=== PATIENT | male | born 1960 | race African-American/Black ===

== ENCOUNTER 2019-12-24 12:58 | Inpatient (IN) | payer MEDICARE, MEDICAID ==
[~2019-12-24] VITALS: Ht 167.6 cm; Wt 47.4 kg
--- NOTE | 2019-12-24 07:30 | NUR ---
HAND-OFF: Report given to Briana HUITRON. Addendum: 12/24/19 at 2021 by Wilson Leon RN RN Incorrect time stamp
[2019-12-24] MEDS ORDERED: TRAMADOL HCL50 MG ORAL (13:12)
[2019-12-24] MEDS ORDERED: FLOMAX0.4 MG ORAL (13:12)
[2019-12-24] MEDS ORDERED: ACETAMINOPHEN325 M1 ORAL (13:12)
[2019-12-24] MEDS ORDERED: GENVOYA TABLET1 EACH PO (13:12)
[2019-12-24] MEDS ORDERED: ARTIFICIAL TEAR15 ML BOTH EYES (13:12)
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
[2019-12-24] MEDS ORDERED: Acetaminophen 500mg (ES) tab ORAL ONE (13:45)
--- NOTE | 2019-12-24 13:45 | Emergency Room Report ---
History of Present Illness General Chief Complaint: Fever Source: Patient, EMS Present Illness HPI 59-year-old male presents ED for evaluation of fever x1 day. Temp 102 in triage. From [facility] facility. Notes cough. Patient no signs of distress on arrival. Denies any chest pain or shortness of breath. Denies any nausea or vomiting. Denies any diarrhea. No other aggravating relieving factors. Denies any other associated symptoms Allergies: Coded Allergies: No Known Allergies (Unverified , 12/24/19) COVID-19 Screening Contact w/high risk pt: Yes Recent Travel to affected area: No Experienced COVID-19 symptoms?: Yes COVID-19 symptoms experienced: Fever (T>100.4F or >38C) Patient History Past Medical History: HTN, GERD, psych hx Past Surgical History: none Pertinent Family History: none Social History: Denies: smoking, alcohol use, drug use Immunizations: UTD Reviewed Nursing Documentation: PMH: Agreed; PSxH: Agreed Nursing Documentation-PMH Past Medical History: No History, Except For Hx Hypertension: Yes Hx Gastrointestinal Problems: Yes - GERD History Of Psychiatric Problem: Yes - ANXIETY, DEPRESSION Review of Systems All Other Systems: negative except mentioned in HPI Physical Exam Vital Signs Date Time Temp Pulse Resp B/P (MAP) Pulse Ox O2 Delivery O2 Flow Rate FiO2 12/24/19 13:00 102.0 97 18 127/60 (82) 96 Room Air Sp02 EP Interpretation: reviewed, normal General Appearance: no apparent distress, alert, GCS 15, non-toxic Head: normocephalic, atraumatic Eyes: bilateral eye normal inspection, bilateral eye PERRL ENT: hearing grossly normal, normal pharynx, no angioedema, normal voice Neck: full range of motion, supple/symm/no masses Respiratory: chest non-tender, lungs clear, normal breath sounds, speaking full sentences Cardiovascular #1: regular rate, rhythm, no edema Cardiovascular #2: 2+ carotid (R), 2+ carotid (L), 2+ radial (R), 2+ radial (L) , 2+ dorsalis pedis (R), 2+ dorsalis pedis (L) Gastrointestinal: normal bowel sounds, non tender, soft, non-distended, no guarding, no rebound Rectal: deferred Genitourinary: normal inspection, no CVA tenderness Musculoskeletal: back normal, normal range of motion, gait/station normal, non- tender Neurologic: alert, motor strength/tone normal, oriented x3, sensory intact, responsive, speech normal Psychiatric: judgement/insight normal, memory normal, mood/affect normal, no suicidal/homicidal ideation Reflexes: 3+ bicep (R), 3+ bicep (L), 3+ tricep (R), 3+ tricep (L), 3+ knee (R) , 3+ knee (L) Skin: other - see nursing skin notes Lymphatic: no adenopathy Medical Decision Making Diagnostic Impression: Primary Impression: Pneumonia Qualified Codes: J18.9 - Pneumonia, unspecified organism Additional Impression: Fever Qualified Codes: R50.9 - Fever, unspecified ER Course Hospital Course 59 yo M presents with cough, fever from SNF. Differential diagnoses include: Pneumonia, CHF exacerbation, pneumothorax, fluid overload Clinical course Patient placed on stretcher. In isolation. I wore full PPE. On monitor tech with stable vitals. After initial history and physical, I ordered tylenol. I ordered labs, IV fluids, EKG, chest x-ray, blood cultures, UA. Patient placed on nasal cannula with O2 saturation improving Labs - no leukocytosis, hb/hct stable, electrolytes ok, UA + bacteria CXR - haziness in bilteral lung orellana concern for COVID - swab sent. antibitoics given. IVFs given. Case discussed with Dr. Quintana and he agreed to the patient to his service for further care and support I feel this is a highly complex case requiring extensive working including EKG/ Rhythm strip, Xray/CT/US, Blood/urine lab work, repeat exams while in ED, and administration of strong opiates/narcotics for pain control, admission to hospital or close patient follow up. Diagnosis - pneumonia, fever Patient admitted to floor in serious condition Labs Test 12/24/19 13:48 12/24/19 14:15 12/27/19 06:20 Nucleated Red Blood Cells 1 /100 WBC Reactive Lymphocytes 1+ Lactic Acid Level 0.80 mmol/L (0.4-2.0) Urine Color Pale yellow Urine Appearance Very cloudy Urine pH 6.5 (4.5-8.0) Urine Specific [place] 1.010 (1.005-1.035) Urine Protein 3+ (NEGATIVE) Urine Glucose (UA) Negative (NEGATIVE) Urine Ketones Negative (NEGATIVE) Urine Blood 5+ (NEGATIVE) Urine Nitrite Positive (NEGATIVE) Urine Bilirubin Negative (NEGATIVE) Urine Urobilinogen Normal MG/DL (0.0-1.0) Urine Leukocyte Esterase 3+ (NEGATIVE) Urine RBC Tntc /HPF (0 - 0) Urine WBC Tntc /HPF (0 - 0) Urine Squamous Epithelial Cells None /LPF (NONE/OCC) Urine Bacteria Many /HPF (NONE) White Blood Count 5.6 K/UL (4.8-10.8) Red Blood Count 4.40 M/UL (4.70-6.10) Hemoglobin 12.2 G/DL (14.2-18.0) Hematocrit 36.7 % (42.0-52.0) Mean Corpuscular Volume 83 FL (80-99) Mean Corpuscular Hemoglobin 27.8 PG (27.0-31.0) Mean Corpuscular Hemoglobin Concent 33.4 G/DL (32.0-36.0) Red Cell Distribution Width 11.6 % (11.6-14.8) Platelet Count 306 K/UL (150-450) Mean Platelet Volume 6.0 FL (6.5-10.1) Neutrophils (%) (Auto) % (45.0-75.0) Lymphocytes (%) (Auto) % (20.0-45.0) Monocytes (%) (Auto) % (1.0-10.0) Eosinophils (%) (Auto) % (0.0-3.0) Basophils (%) (Auto) % (0.0-2.0) Differential Total Cells Counted 100 Neutrophils % (Manual) 38 % (45-75) Lymphocytes % (Manual) 51 % (20-45) Monocytes % (Manual) 8 % (1-10) Eosinophils % (Manual) 2 % (0-3) Basophils % (Manual) 1 % (0-2) Band Neutrophils 0 % (0-8) Platelet Estimate Adequate Platelet Morphology Normal Red Blood Cell Morphology Normal Sodium Level 141 MMOL/L (136-145) Potassium Level 4.3 MMOL/L (3.5-5.1) Chloride Level 107 MMOL/L (98-107) Carbon Dioxide Level 26 MMOL/L (21-32) Anion Gap 9 mmol/L (5-15) Blood Urea Nitrogen 6 mg/dL (7-18) Creatinine 0.8 MG/DL (0.55-1.30) Estimat Glomerular Filtration Rate > 60 mL/min (>60) Glucose Level 95 MG/DL (74-106) Calcium Level 8.4 MG/DL (8.5-10.1) Total Bilirubin 0.3 MG/DL (0.2-1.0) Aspartate Amino Transf (AST/SGOT) 60 U/L (15-37) Alanine Aminotransferase (ALT/SGPT) 100 U/L (12-78) Alkaline Phosphatase 74 U/L (46-116) Total Protein 7.9 G/DL (6.4-8.2) Albumin 2.7 G/DL (3.4-5.0) Globulin 5.2 g/dL Albumin/Globulin Ratio 0.5 (1.0-2.7) Chest X-Ray Diagnostic Results Chest X-Ray Diagnostic Results : Chest X-Ray Ordered: Yes # of Views/Limited/Complete: 1 View Indication: Shortness of Breath EP Interpretation: Yes Interpretation: no pneumothorax, other - atelectasis bilaterally Impression: Other - pneumonia Electronically Signed by: Electronically signed by Oscar Cardozo MD Last Vital Signs Date Time Temp Pulse Resp B/P (MAP) Pulse Ox O2 Delivery O2 Flow Rate FiO2 12/24/19 13:00 102.0 97 18 127/60 (82) 96 Room Air Status: improved Disposition: ADMITTED INPATIENT Condition: Serious Referrals: Blayne Quintana MD (PCP) Oscar Cardozo MD December 24, 2019 13:45
--- NOTE | 2019-12-24 14:00 | NUR ---
ED Nurse Note: Blood labs and COVID sent.
[2019-12-24 14:11] VITALS: BP 126/63
[2019-12-24 14:20] VITALS: BP 124/61
[2019-12-24 14:39] LABS: HEMATOCRIT 38.7 % (42.0-52.0); HEMOGLOBIN 12.9 G/DL (14.2-18.0); MEAN CORPUSCULAR VOLUME 82 FL (80-99); PLATELET COUNT 266 K/UL (150-450); RED BLOOD COUNT 4.69 M/UL (4.70-6.10); RED CELL DISTRIBUTION WIDTH 11.5 % (11.6-14.8); WHITE BLOOD COUNT 5.9 K/UL (4.8-10.8)
[2019-12-24 14:42] LABS: ANION GAP 9 mmol/L (5-15); BLOOD UREA NITROGEN 13 mg/dL (7-18); CALCIUM 8.5 MG/DL (8.5-10.1); CARBON DIOXIDE 26 MMOL/L (21-32); CHLORIDE 99 MMOL/L (98-107); CREATININE 1.1 MG/DL (0.55-1.30); POTASSIUM 4.7 MMOL/L (3.5-5.1); SODIUM 134 MMOL/L (136-145)
[2019-12-24 14:47] LABS: ALANINE AMINOTRANSFERASE 148 U/L (12-78); ALBUMIN 3.1 G/DL (3.4-5.0); ALBUMIN/GLOBULIN RATIO 0.5 (1.0-2.7); ALKALINE PHOSPHATASE 73 U/L (46-116); ASPARTATE AMINO TRANSFERASE 100 U/L (15-37); BILIRUBIN,TOTAL 0.3 MG/DL (0.2-1.0)
[2019-12-24] MEDS ORDERED: Cefepime HCl 2 GM in D5W 55 ML IVPB ONE (15:00)
[2019-12-24] MEDS ORDERED: Azithromycin 500 MG in D5W 275 ML IVPB ONE (15:00)
[2019-12-24 15:15] LABS: APPEARANCE,URINE VERY CLOUDY; BILIRUBIN, URINE NEGATIVE (NEGATIVE); COLOR,URINE PALE YELLOW; GLUCOSE, URINE (UA) NEGATIVE (NEGATIVE); KETONES,URINE NEGATIVE (NEGATIVE); LEUKOCYTE ESTERASE ,URINE 3+ (NEGATIVE); NITRITE,URINE POSITIVE (NEGATIVE); PH,URINE 6.5 (4.5-8.0); PROTEIN,URINE 3+ (NEGATIVE); UROBILINOGEN,URINE NORMAL MG/DL (0.0-1.0)
--- NOTE | 2019-12-24 15:44 | Diagnostic Imaging Report ---
Indication: Cough Technique: One view of the chest Comparison: none Findings: Lungs and pleural spaces are clear. The heart size is normal. Impression: Negative
--- NOTE | 2019-12-24 16:35 | NUR ---
ED Nurse Note: Report given to Wilson HUITRON.
--- NOTE | 2019-12-24 16:40 | NUR ---
ED Nurse Note: Pt being transferred to MS floor and received by RN. All belongings with pt.
--- NOTE | 2019-12-24 16:50 | NUR ---
NURSE NOTES: Patient arrived in 4E room 406 in stable condition. Vital signs are stable, no complaints of pain. No acute signs of distress noted. IV is patent and asymptomatic, monteiro catheter is patent and draining. Patient oriented to room, bed is low and locked, side rails up x2, call light is within reach.
--- NOTE | 2019-12-24 19:30 | NUR ---
HAND-OFF: Report given to Briana HUITRON.
--- NOTE | 2019-12-24 19:32 | NUR ---
NURSE NOTES: Receive Patient in a stable condition. Vital signs are stable, no complaints of pain. No sob, and no fever. IV is patent, asymptomatic and NS 100cc is running, monteiro catheter is patent and draining.Bed is in the lowest position, alarm on and locked. call light is within reach. We will keep monitoring him
[2019-12-24 20:00] VITALS: BP 100/65
[2019-12-24] MEDS ORDERED: traMADol 50mg tab ORAL PRN (22:30)
[2019-12-24] MEDS ORDERED: Albuterol/Ipratropium 3ml neb HHN SCH (23:00)
[2019-12-25] VITALS: BP 105/69
--- NOTE | 2019-12-25 01:14 | History and Physical Report ---
DATE OF ADMISSION: 12/24/2019 HISTORY OF PRESENT ILLNESS: This is a 59-year-old male who came to the emergency room for having recurrent fever, chills, abdominal pain, nausea, vomiting for last few days. The patient has refused multiple times to come to the hospital. Finally, he agreed. The patient currently looks very diaphoretic, generalized weakness, tired, also having recurrent nausea, vomiting, and abdominal pain. The patient has been critically sick and possible COVID. PAST MEDICAL HISTORY: Significant for dementia, depression, degenerative arthritis, and severe malnutrition. ALLERGIES: NKA. MEDICATIONS: See the list. SOCIAL HISTORY: The patient lives at long term, mostly bedridden. PHYSICAL EXAMINATION: GENERAL: This is an elderly male who currently looks dehydrated and cachectic and in the bed. VITAL SIGNS: Blood pressure 100/40, pulse 74 to 100, respirations 18, T-max 102. SKIN: Diaphoretic and dry. HEENT: Eyes are open. NECK: Supple. CHEST: Bilateral decreased breath sounds. CARDIOVASCULAR: Regular rhythm. Tachycardia. ABDOMEN: Soft, positive bowel sounds. Mild tenderness. EXTREMITIES: CCE. NEUROLOGICAL: Generalized weakness. ASSESSMENT: 1. Fever, rule out sepsis. 2. Rule out COVID. 3. Dehydration. 4. Recurrent nausea and vomiting, rule out gastroenteritis. 5. Severe malnutrition. 6. Dementia. 7. Dehydration. PLAN: The patient was admitted on medical floor, had IV fluid. Continue IV antibiotic, Zithromax, Levaquin, and Rocephin. Consider ID consult. Start soft diet. Added Zofran. If the patient , consider also GI consult. Davey Quintana M.D. DR: Primitivo JOB#: [id number] CC:
[2019-12-25 04:54] VITALS: BP 103/6
--- NOTE | 2019-12-25 07:30 | NUR ---
HAND-OFF: Report given to TOMY Lewis.
[2019-12-25 08:00] VITALS: BP 116/79
--- NOTE | 2019-12-25 08:00 | NUR ---
NURSE NOTES: patient awake and alert,respirations unlabored.IV fluids infusing as ordered.Mao catheter draining yellow urine.patient had bowel movement,skin care given.Patient breakfast at bedside,patient hand appers contracted,will assist patient with meals.Bed alarm on.
--- NOTE | 2019-12-25 09:33 | NUR ---
RD ASSESSMENT & RECOMMENDATIONS SEE CARE ACTIVITY FOR COMPLETE ASSESSMENT DAILY ESTIMATED NEEDS: Needs based on HIV 50kg 30-35 kcals/kg 4182-4885 total kcals 1-2 g protein/kg 50-100 g total protein 25-30 mL/kg 3863-8167 total fluid mLs NUTRITION DIAGNOSIS: Increased kcal and pro needs r/t underweight status as evidenced by BMI underweight per guidelines, 77% of [place] Body Weight, h/o HIV. CURRENT DIET: ms Chopped PO DIET RECOMMENDATIONS: Regular diet, texture as tolerated / per [employer] ADDITIONAL RECOMMENDATIONS: 1) Maintain calibrated bed scale wt d/t low BMI per EMR 2) [employer] eval for appropriate texture 3) Add ensure enlive BID + snacks as tolerated
--- NOTE | 2019-12-25 10:37 | NUR ---
*-* INSURANCE *-* ALL AVAILABLE CLINICALS HAVE BEEN FAXED TO: [facility] ILM: SARINA RIVERA P- [phone] F- [phone]...REVIEW/CLINICAL
[2019-12-25 12:00] VITALS: BP 98/60
--- NOTE | 2019-12-25 13:42 | NUR ---
CASE MANAGEMENT:INITIAL REVIEW 59 YR OLD MALE BIBA FROM [facility] CC; FEVER SI;FEVER. SUSPECTED COVID-19. 102.0 97 20 124/61 63% ON RA NA 134 AST 100 ALT 148 ALB 3.1 UA+ PROTEIN, BLOOD, NITRITE, LEUKOCYTE, RBC, WBC, BACTERIA URINE CX+ ~ GRAM NEGATIVE BACILLUS CXR~NEGATIVE IS;IVF NS BOLUS APAP PO ONCE ADMITTED TO MED SURG @ 1638 ON 12/24/19 MED SURG STATUS DCP;FROM [facility] INTERQUAL MET
[2019-12-25] MEDS ORDERED: Azithromycin 500 MG in D5W 275 ML IV SCH (15:00)
[2019-12-25] MEDS: cefTRIAXone 1 GM in D5W 55 ML IVPB SCH (15:09)
[2019-12-25] MEDS: Tamsulosin 0.4mg cap ORAL SCH (15:52)
[2019-12-25 16:00] VITALS: BP 129/60
--- NOTE | 2019-12-25 17:08 | NUR ---
CHARGE NURSE NOTE: and notified that HIV medications are not available at [facility]. No new orders received.
--- NOTE | 2019-12-25 17:59 | Progress Note ---
DATE: 12/25/2019 SUBJECTIVE: This is a 59-year-old male having recurrent abdominal pain, nausea, vomiting, and fever. Patient initially refused for last 2 or 3 days. Suddenly, he became diaphoretic and dizzy and recurrent fever, came to the hospital. Patient is currently alert, oriented x2, generalized weakness, . Patient currently still critically sick. OBJECTIVE: VITAL SIGNS: Patient has low-grade fever 99.6, pulse 95, respirations 24, blood pressure 103/38. HEENT: Eyes are open. NECK: Supple. CHEST: Bilateral decreased breath sounds. CARDIOVASCULAR: Regular rhythm. Tachycardia. ABDOMEN: Soft. Positive bowel sounds. Nontender. EXTREMITIES: CCE. NEUROLOGICAL: Generalized weakness. GENITOURINARY: Deferred. LABORATORY DATA: White counts 5.9, hemoglobin 13, hematocrit 39, platelets are 256. Chemistry panel, sodium 134, potassium 4.7, BUN 13, creatinine 1.1, glucose is 89. Lactic acid 0.80. AST, ALT elevated. His urine showing 5+ blood, urine nitrites are positive, 3+ leukocyte esterase. His chest x-ray is negative. ASSESSMENT: 1. Sepsis. 2. UTI. Rule out COVID. 3. Failure to thrive. 4. Dementia. 5. Encephalopathy. PLAN: We will currently continue Zithromax, ceftriaxone. Continue Flomax and bronchodilator treatment. for severe pain. Consider ID consult. Davey Quintana M.D. DR: ARMANI JOB#: [id number] CC:
--- NOTE | 2019-12-25 18:30 | Consultation ---
DATE OF CONSULTATION: 12/25/2019 INFECTIOUS DISEASES CONSULTATION CONSULTING PHYSICIAN: Aysha Beal MD. REFERRING PHYSICIAN: Blayne Quintana MD. REASON FOR CONSULTATION: Rule out COVID-19 pneumonia. HISTORY OF PRESENTING ILLNESS: This is a 59-year-old gentleman with history of dementia, depression, arthritis who comes in with fever, chills, nausea, vomiting, and abdominal pain. There is a concern for COVID-19 pneumonia and an Infectious Diseases consultation has been obtained for antibiotics. PAST MEDICAL HISTORY: 1. History of dementia. 2. Depression. 3. Arthritis. SOCIAL HISTORY: Unknown. FAMILY HISTORY: Unknown. REVIEW OF SYSTEMS: Unable to obtain currently. MEDICATIONS: As an inpatient, he is on ceftriaxone, azithromycin, artificial tears, Flomax, albuterol, ipratropium, Tylenol, tramadol, Zofran. ALLERGIES: No known drug allergies. PHYSICAL EXAMINATION: VITAL SIGNS: Temperature of 99.6, T-max of 102, pulse of 95, respiratory rate 24, blood pressure 105/69, O2 saturation 98%. Examination deferred due to possibility of COVID-19. LABORATORY AND DIAGNOSTIC DATA: White count 5.9, hemoglobin 12.9, hematocrit 38.7, MCV 82, platelet count 266 with neutrophils of 35%. Sodium 134, potassium 4.7, chloride 99, bicarb 26, BUN 13, creatinine 1.1, glucose 89, calcium 8.5. Total bilirubin 0.3, AST 100, ALT 148, alkaline phosphatase 73. Total protein 9, albumin 3.1. UA showing too numerous to count white cells. Urine culture is showing gram-negative rods. Chest x-ray was unremarkable. Blood cultures are pending. COVID-19 testing is pending. ASSESSMENT: This is a 59-year-old gentleman with history of arthritis, dementia, depression who comes in with fevers and is found to have. 1. Gram-negative urinary tract infection. 2. We would like to rule out COVID-19 pneumonia as a possibility. 3. Dementia. 4. Depression. PLAN: 1. Continue ceftriaxone and azithromycin. 2. Continue isolation. 3. We will follow up cultures and adjust antibiotics accordingly. 4. We will follow up on COVID-19 results. I would like to thank Dr. Quintana for this consultation. Aysha Beal M.D. DR: ELSY JOB#: [id number] CC: Davey Quintana M.D.; Fax#: [phone]
--- NOTE | 2019-12-25 19:00 | NUR ---
NURSE NOTES: Patient resting,IV fluids infusing as ordered.Bed alarm on,call light within reach.
--- NOTE | 2019-12-25 19:27 | NUR ---
HAND-OFF: Report given to Vicente HUITRON,aware of fall risk..
--- NOTE | 2019-12-25 19:30 | NUR ---
NURSE NOTES: Received patient in no apparent distress. A&OX3. IV site patent and intact. Bed in lowest position. Call light within reach. Will continue to monitor.
[2019-12-25 20:00] VITALS: BP 98/54
--- NOTE | 2019-12-25 21:30 | Consultation ---
DATE OF CONSULTATION: 12/25/2019 HISTORY OF PRESENT ILLNESS: This is a 59-year-old male with a history of being a long term resident. He was brought to the hospital with cough and fever. He was also found to be febrile in the emergency room. The patient was seen and evaluated and admitted to the hospital. PAST MEDICAL HISTORY: Notable for a long term resident, hypertension, GERD, and psych disorder. HOME MEDICATIONS: Reviewed, reconciled in chart. REVIEW OF SYSTEMS: Unreliable. PHYSICAL EXAMINATION: GENERAL: A 59-year-old male. HEENT: Unremarkable. LUNGS: Clear breath sounds bilaterally with normal heart sounds. ABDOMEN: Soft. EXTREMITIES: There is no edema. VITAL SIGNS: Blood pressure is 103/60, heart rate is 95, respirations are 22, O2 saturation 97% on room air, T-max 99.6. LABORATORY DATA: Lab testing shows normal CBC and BMP with elevation of AST and ALT noted. Urine culture shows gram-negative bacilli. IMAGING STUDIES: Imaging studies were obtained with x-ray of chest showing clear lung orellana bilaterally. IMPRESSION: 1. Probable UTI. 2. [facility] resident. 3. Hypertension. 4. GERD. DISCUSSION: Admit to the hospital. Currently, his status is stable. We will continue to monitor for COVID-19 given long term residency status. We will follow carefully and note that he has been started on fluids, breathing treatments, azithromycin and Rocephin as well as p.r.n. medications. We will follow carefully. Gabino Mcallister M.D. DR: Teddy JOB#: [id number] CC:
--- NOTE | 2019-12-25 23:19 | NUR ---
NURSE NOTES: Received COVID positive result from Lab.
[2019-12-26] VITALS: BP 90/60
[2019-12-26 04:00] VITALS: BP 110/74
--- NOTE | 2019-12-26 07:16 | NUR ---
NURSE NOTES: Call and left message to Dr. Beal regarding COVID positive result.
--- NOTE | 2019-12-26 07:18 | NUR ---
HAND-OFF: Report given to Soledad HUITRON.
--- NOTE | 2019-12-26 07:38 | NUR ---
NURSE NOTES: Patient awake alert and oriented,respirations unlabored.Mao catheter in place and draining yellow urine.IV fluids infusing as ordered.Breakfast at bedside will assist patient.Call light within reach.
[2019-12-26 08:00] VITALS: BP 96/62
[2019-12-26] MEDS: Tamsulosin 0.4mg cap ORAL SCH (09:00)
[2019-12-26] MEDS ORDERED: Hydroxychloroquine Fact Sheet MISC ONE (10:00)
--- NOTE | 2019-12-26 11:16 | NUR ---
NURSE NOTES: Patient was given the information fact sheet on Hydroxychloroquine and aware of the Positive COVID -19 result.. Patient state he understand what the medication is use for but he is not sure if he wants to take the medication. Patient state he is more concern about his HIV medication Genvoya , the patient medication was sent to pharmacy waiting approval.
--- NOTE | 2019-12-26 11:16 | Pulmonology Progress Note ---
Subjective Interval Events: None new Constitutional: Reports: no symptoms HEENT: Repors: no symptoms Respiratory: Reports: dry cough, shortness of breath Cardiovascular: Reports: no symptoms Gastrointestinal/Abdominal: Reports: no symptoms Genitourinary: Reports: no symptoms Allergies: Coded Allergies: No Known Allergies (Unverified , 12/24/19) Objective Last 24 Hour Vital Signs Date Time Temp Pulse Resp B/P (MAP) Pulse Ox O2 Delivery O2 Flow Rate FiO2 12/26/19 09:41 Room Air 12/26/19 08:00 98.1 75 18 96/62 (73) 96 12/26/19 04:00 98.6 84 20 110/74 (86) 96 12/26/19 00:00 99.0 85 19 90/60 (70) 96 12/25/19 21:00 Room Air 12/25/19 20:00 99.6 88 17 98/54 (69) 96 12/25/19 16:00 98.8 78 18 129/60 (83) 96 12/25/19 12:00 99.7 93 20 98/60 (73) 98 12/25/19 11:29 Room Air Intake and Output 12/25/19 12/26/19 19:00 07:00 Intake Total 200 ml 1340 ml Output Total 1700 ml Balance 200 ml -360 ml Intake Oral 240 ml IV Total 200 ml 1100 ml Output Urine Total 1700 ml Microbiology Date/Time Source Procedure Growth Status 12/24/19 13:48 Blood Blood Culture - Preliminary NO GROWTH AFTER 24 HOURS Resulted 12/24/19 13:33 Blood Blood Culture - Preliminary NO GROWTH AFTER 24 HOURS Resulted 12/24/19 14:13 Nasal Nares MRSA Culture - Final NO METHICILLIN RESISTANT STAPH AUREUS... Complete 12/24/19 13:48 Nasopharynx Coronavirus COVID-19 PCR (JAMES) - Final Complete 12/24/19 14:15 Urine,Clean Catch Urine Culture - Final Providencia Stuartii Complete 12/24/19 14:13 Rectum - Final NO CARBAPENEM-RESISTANT ENTEROBACTERI... Complete 12/24/19 14:13 Rectum VRE Culture - Final NO VANCOMYCIN RESISTANT ENTEROCOCCUS ... Complete Current Medications Medications (Trade) Dose Ordered Sig/Val Route PRN Reason Start Time Stop Time Status Last Admin Dose Admin Acetaminophen (Tylenol) 650 mg Q6H PRN ORAL Temp >100.5 12/24/19 22:30 01/23/20 22:29 Albuterol/ Ipratropium (Combivent Respimat) 1 puff Q4HR INH 12/25/19 09:00 01/24/20 08:59 Artificial Tears (Akwa-Tears) 1 drop THREE TIMES A DAY BOTH EYES 12/25/19 09:00 01/24/20 08:59 12/25/19 15:12 Ceftriaxone Sodium 1 gm/ Dextrose 55 ml @ 110 mls/hr Q24H IVPB 12/25/19 14:00 01/01/20 13:59 12/25/19 15:09 Hydroxychloroquine Sulfate (Plaquenil) 200 mg Q12HR ORAL 12/27/19 09:00 12/30/19 21:01 Hydroxychloroquine Sulfate (Plaquenil) 400 mg Q12HR ORAL 12/26/19 10:00 12/26/19 21:01 Ondansetron HCl (Zofran) 4 mg Q6H PRN IVP Nausea & Vomiting 12/24/19 19:00 01/23/20 18:59 Patient Own Medication (Patient's Own Med) 1 ea DAILY ORAL 12/26/19 13:00 01/25/20 12:59 Sodium Chloride 1,000 ml @ 100 mls/hr Q10H IV 12/24/19 19:00 01/23/20 18:59 12/26/19 11:09 Tamsulosin HCl (Flomax) 0.4 mg DAILY ORAL 12/25/19 09:00 01/24/20 08:59 12/25/19 15:52 Tramadol HCl (Ultram) 50 mg Q6H PRN ORAL For Pain 12/24/19 22:30 12/31/19 22:29 Assessment/Plan Assessment/Plan IMPRESSION: 1. Providencia UTI. 2. [facility] resident. 3. Hypertension. 4. GERD. 5. COVID 19 pneumonia DISCUSSION: Currently, his status is stable. He is on RA I will follow carefully COntinue fluids,breathing treatments, abx as well as p.r.n. medications. Ranjan Adam Omar Syed MD December 26, 2019 11:16
--- NOTE | 2019-12-26 11:41 | Infectious Diseases Prog Note ---
Assessment/Plan Assessment/Plan A; 1. Providencia urinary tract infection. 2. COVID-19 pneumonia 3. Dementia. 4. Depression. 5. Lymphocytosis 6. elevated transaminase PLAN: 1. Continue ceftriaxone and azithromycin. 2. Continue isolation. Subjective ROS Limited/Unobtainable: Yes Constitutional: Denies: fever Allergies: Coded Allergies: No Known Allergies (Unverified , 12/24/19) Objective Vital Signs Last 24 Hour Vital Signs Date Time Temp Pulse Resp B/P (MAP) Pulse Ox O2 Delivery O2 Flow Rate FiO2 12/26/19 09:41 Room Air 12/26/19 08:00 98.1 75 18 96/62 (73) 96 12/26/19 04:00 98.6 84 20 110/74 (86) 96 12/26/19 00:00 99.0 85 19 90/60 (70) 96 12/25/19 21:00 Room Air 12/25/19 20:00 99.6 88 17 98/54 (69) 96 12/25/19 16:00 98.8 78 18 129/60 (83) 96 12/25/19 12:00 99.7 93 20 98/60 (73) 98 Height (Feet): 5 Height (Inches): 6.00 Weight (Pounds): 110 General Appearance: no acute distress HEENT: mucous membranes moist Respiratory/Chest: lungs clear, other - oxygen by nasal cannula Cardiovascular: normal rate Abdomen: soft, non tender Extremities: no edema Neurologic/Psychiatric: other - sleeping Microbiology Date/Time Source Procedure Growth Status 12/24/19 13:48 Blood Blood Culture - Preliminary NO GROWTH AFTER 24 HOURS Resulted 12/24/19 13:33 Blood Blood Culture - Preliminary NO GROWTH AFTER 24 HOURS Resulted 12/24/19 14:13 Nasal Nares MRSA Culture - Final NO METHICILLIN RESISTANT STAPH AUREUS... Complete 12/24/19 13:48 Nasopharynx Coronavirus COVID-19 PCR (JAMES) - Final Complete 12/24/19 14:15 Urine,Clean Catch Urine Culture - Final Providencia Stuartii Complete 12/24/19 14:13 Rectum - Final NO CARBAPENEM-RESISTANT ENTEROBACTERI... Complete 12/24/19 14:13 Rectum VRE Culture - Final NO VANCOMYCIN RESISTANT ENTEROCOCCUS ... Complete Current Medications Medications (Trade) Dose Ordered Sig/Val Route PRN Reason Start Time Stop Time Status Last Admin Dose Admin Acetaminophen (Tylenol) 650 mg Q6H PRN ORAL Temp >100.5 12/24/19 22:30 01/23/20 22:29 Albuterol/ Ipratropium (Combivent Respimat) 1 puff Q4HR INH 12/25/19 09:00 01/24/20 08:59 Artificial Tears (Akwa-Tears) 1 drop THREE TIMES A DAY BOTH EYES 12/25/19 09:00 01/24/20 08:59 12/25/19 15:12 Ceftriaxone Sodium 1 gm/ Dextrose 55 ml @ 110 mls/hr Q24H IVPB 12/25/19 14:00 01/01/20 13:59 12/25/19 15:09 Hydroxychloroquine Sulfate (Plaquenil) 200 mg Q12HR ORAL 12/27/19 09:00 12/30/19 21:01 Hydroxychloroquine Sulfate (Plaquenil) 400 mg Q12HR ORAL 12/26/19 10:00 12/26/19 21:01 Ondansetron HCl (Zofran) 4 mg Q6H PRN IVP Nausea & Vomiting 12/24/19 19:00 01/23/20 18:59 Patient Own Medication (Patient's Own Med) 1 ea DAILY ORAL 12/26/19 13:00 01/25/20 12:59 Sodium Chloride 1,000 ml @ 100 mls/hr Q10H IV 12/24/19 19:00 01/23/20 18:59 12/26/19 11:09 Tamsulosin HCl (Flomax) 0.4 mg DAILY ORAL 12/25/19 09:00 01/24/20 08:59 12/25/19 15:52 Tramadol HCl (Ultram) 50 mg Q6H PRN ORAL For Pain 12/24/19 22:30 12/31/19 22:29 Baron Angulo MD December 26, 2019 11:41
[2019-12-26 12:00] VITALS: BP 108/70
--- NOTE | 2019-12-26 14:12 | NUR ---
*-* INSURANCE *-* UPDATED CLINICALS HAVE BEEN FAXED TO: [facility] DCM: SARINA RIVERA P- [phone] F- [phone]...REVIEW/CLINICAL
[2019-12-26] MEDS: GENVOYA ORAL SCH (14:25)
[2019-12-26] MEDS: cefTRIAXone 1 GM in D5W 55 ML IVPB SCH (14:26)
--- NOTE | 2019-12-26 14:44 | NUR ---
CASE MANAGEMENT:REVIEW SI;COVID-19 PNEUMONIA PROVIDENCIA UTI. 99.6 88 20 90/60 96% ON RA IS;PLAQUENIL PO Q12 HRS ROCEPHIN IV Q24 HRS AZITHROMYCIN IV Q24 HRS FLOMAX PO QD COMBIVENT ING Q4 HRS IVF NS @ 100 ML/HR MED SURG STATUS DCP; FROM [facility] PLAN;CONTINUE ISOLATION CONTINUE ABX
--- NOTE | 2019-12-26 14:44 | NUR ---
NURSE NOTES: DR Marcello Angulo was here today and aware of patient not wanting to take the medication Hydroxchloroquine.
[2019-12-26 16:00] VITALS: BP 123/81
--- NOTE | 2019-12-26 19:20 | NUR ---
HAND-OFF: Report given to Ashlee HUITRON.
--- NOTE | 2019-12-26 19:30 | NUR ---
NURSE NOTES: The patient was accessed and was looking weak. He had poor appetite and was not not willing to eat his dinner tray which was still hanging out on his bed side. He was offer apple juice and crackers and was only able to tolerate 2 crackers and 2 cans of apple juice. The Resp is even and unlabored and he was verbally responsive with low voice. He was able to reposition himself. The IV site is patent and intact on the left lower arm. The bed is on low position and the call light was within easy reach. will continue to monitor
[2019-12-26 20:00] VITALS: BP 97/64
--- NOTE | 2019-12-26 21:12 | NUR ---
NURSE NOTES: The patient refused to take his 2100 plaquinil 400 mg and Combivent puff . The patient was explained the risks and benefits but still refused.
--- NOTE | 2019-12-26 21:45 | Progress Note ---
DATE: 12/26/2019 SUBJECTIVE: The patient is currently in bed and looking okay, but is screaming. PHYSICAL EXAMINATION: VITAL SIGNS: Blood pressure 108/70, pulse 78, no fever. HEENT: NAD. CHEST: Bilateral few crackles. CARDIOVASCULAR: Regular rhythm. ABDOMEN: Soft. EXTREMITIES: CCE. NEUROLOGICAL: No generalized weakness. LABORATORY DATA: The patient has no labs. ASSESSMENT: 1. COVID pneumonia. 2. Fever. 3. Sepsis. His blood culture was so far negative. Urine culture showing Providencia. PLAN: We will continue antibiotics. ID is on consult and continue also isolation and continue Plaquenil. Davey Quintana M.D. DR: Primitivo JOB#: [id number] CC:
[2019-12-27] VITALS: BP 94/59
[2019-12-27 04:00] VITALS: BP 95/60
[2019-12-27 06:42] LABS: HEMATOCRIT 36.7 % (42.0-52.0); HEMOGLOBIN 12.2 G/DL (14.2-18.0); MEAN CORPUSCULAR VOLUME 83 FL (80-99); PLATELET COUNT 306 K/UL (150-450); RED CELL DISTRIBUTION WIDTH 11.6 % (11.6-14.8); WHITE BLOOD COUNT 5.6 K/UL (4.8-10.8)
[2019-12-27 07:03] LABS: ALANINE AMINOTRANSFERASE 100 U/L (12-78); ALBUMIN 2.7 G/DL (3.4-5.0); ALBUMIN/GLOBULIN RATIO 0.5 (1.0-2.7); ALKALINE PHOSPHATASE 74 U/L (46-116); ANION GAP 9 mmol/L (5-15); ASPARTATE AMINO TRANSFERASE 60 U/L (15-37); BILIRUBIN,TOTAL 0.3 MG/DL (0.2-1.0); BLOOD UREA NITROGEN 6 mg/dL (7-18); CALCIUM 8.4 MG/DL (8.5-10.1); CARBON DIOXIDE 26 MMOL/L (21-32); CHLORIDE 107 MMOL/L (98-107); CREATININE 0.8 MG/DL (0.55-1.30); POTASSIUM 4.3 MMOL/L (3.5-5.1); SODIUM 141 MMOL/L (136-145)
--- NOTE | 2019-12-27 07:45 | NUR ---
NURSE NOTES: Report received from Ashlee Rodriguez RN. Seen on rounds, AxOx4, not in distress, no complaints of pain. Tolerating room air. Noted distal occlusion on left forearm PIV, unable to flush, pt reports pain when site is palpated. Line removed. Will reinsert. Mao cath secured and draining well. Bed low and locked, siderails up x3, zone alarms on 1, call light placed within reach and instructed to use to call nurse. Will continue to monitor and implement plan of care.
--- NOTE | 2019-12-27 07:46 | NUR ---
HAND-OFF: Report given to Cydney HUITRON.
[2019-12-27 08:00] VITALS: BP 101/55
[2019-12-27] MEDS: GENVOYA ORAL SCH ×2 (09:00→14:29)
--- NOTE | 2019-12-27 09:00 | NUR ---
NURSE NOTES: Patient refused 9am medications Plaquenil, eye drops and combivent. Educated on risks and benefits x3, patient still refused. Patient is AxOx4.
[2019-12-27] MEDS: Tamsulosin 0.4mg cap ORAL SCH (09:03)
--- NOTE | 2019-12-27 10:49 | Infectious Diseases Prog Note ---
Assessment/Plan Assessment/Plan antibiotics : ceftriaxone, hydroxychloroquine A 1. providencia UTI 2. COVID 19 pneumonia 3. dementia P 1. continue ceftriaxone 3 more days 2. continue hydroxychloroquine 3 more days 3. will follow up cultures 4. continue isolation Subjective ROS Limited/Unobtainable: Yes Allergies: Coded Allergies: No Known Allergies (Unverified , 12/24/19) Objective Vital Signs Last 24 Hour Vital Signs Date Time Temp Pulse Resp B/P (MAP) Pulse Ox O2 Delivery O2 Flow Rate FiO2 12/27/19 08:00 98.7 84 19 101/55 (70) 97 12/27/19 04:00 98.4 95 18 95/60 (72) 95 12/27/19 00:00 98.5 94 20 94/59 (71) 95 12/26/19 21:00 Room Air 12/26/19 20:00 98.6 97 18 97/64 (75) 96 12/26/19 16:00 96.8 71 18 123/81 (95) 95 12/26/19 12:00 96.6 78 17 108/70 (83) 95 Height (Feet): 5 Height (Inches): 6.00 Weight (Pounds): 110 Microbiology Date/Time Source Procedure Growth Status 12/24/19 13:48 Blood Blood Culture - Preliminary NO GROWTH AFTER 48 HOURS Resulted 12/24/19 13:33 Blood Blood Culture - Preliminary NO GROWTH AFTER 48 HOURS Resulted 12/24/19 14:13 Nasal Nares MRSA Culture - Final NO METHICILLIN RESISTANT STAPH AUREUS... Complete 12/24/19 13:48 Nasopharynx Coronavirus COVID-19 PCR (JAMES) - Final Complete 12/24/19 14:15 Urine,Clean Catch Urine Culture - Final Providencia Stuartii Complete 12/24/19 14:13 Rectum - Final NO CARBAPENEM-RESISTANT ENTEROBACTERI... Complete 12/24/19 14:13 Rectum VRE Culture - Final NO VANCOMYCIN RESISTANT ENTEROCOCCUS ... Complete Laboratory Tests Test 12/27/19 06:20 White Blood Count 5.6 K/UL (4.8-10.8) Red Blood Count 4.40 M/UL (4.70-6.10) L Hemoglobin 12.2 G/DL (14.2-18.0) L Hematocrit 36.7 % (42.0-52.0) L Mean Corpuscular Volume 83 FL (80-99) Mean Corpuscular Hemoglobin 27.8 PG (27.0-31.0) Mean Corpuscular Hemoglobin Concent 33.4 G/DL (32.0-36.0) Red Cell Distribution Width 11.6 % (11.6-14.8) Platelet Count 306 K/UL (150-450) Mean Platelet Volume 6.0 FL (6.5-10.1) L Neutrophils (%) (Auto) % (45.0-75.0) Lymphocytes (%) (Auto) % (20.0-45.0) Monocytes (%) (Auto) % (1.0-10.0) Eosinophils (%) (Auto) % (0.0-3.0) Basophils (%) (Auto) % (0.0-2.0) Differential Total Cells Counted 100 Neutrophils % (Manual) 38 % (45-75) L Lymphocytes % (Manual) 51 % (20-45) H Monocytes % (Manual) 8 % (1-10) Eosinophils % (Manual) 2 % (0-3) Basophils % (Manual) 1 % (0-2) Band Neutrophils 0 % (0-8) Platelet Estimate Adequate Platelet Morphology Normal Red Blood Cell Morphology Normal Sodium Level 141 MMOL/L (136-145) Potassium Level 4.3 MMOL/L (3.5-5.1) Chloride Level 107 MMOL/L (98-107) Carbon Dioxide Level 26 MMOL/L (21-32) Anion Gap 9 mmol/L (5-15) Blood Urea Nitrogen 6 mg/dL (7-18) L Creatinine 0.8 MG/DL (0.55-1.30) Estimat Glomerular Filtration Rate > 60 mL/min (>60) Glucose Level 95 MG/DL (74-106) Calcium Level 8.4 MG/DL (8.5-10.1) L Total Bilirubin 0.3 MG/DL (0.2-1.0) Aspartate Amino Transf (AST/SGOT) 60 U/L (15-37) H Alanine Aminotransferase (ALT/SGPT) 100 U/L (12-78) H Alkaline Phosphatase 74 U/L (46-116) Total Protein 7.9 G/DL (6.4-8.2) Albumin 2.7 G/DL (3.4-5.0) L Globulin 5.2 g/dL Albumin/Globulin Ratio 0.5 (1.0-2.7) L Current Medications Medications (Trade) Dose Ordered Sig/Val Route PRN Reason Start Time Stop Time Status Last Admin Dose Admin Acetaminophen (Tylenol) 650 mg Q6H PRN ORAL Temp >100.5 12/24/19 22:30 01/23/20 22:29 Albuterol/ Ipratropium (Combivent Respimat) 1 puff Q4HR INH 12/25/19 09:00 01/24/20 08:59 Artificial Tears (Akwa-Tears) 1 drop THREE TIMES A DAY BOTH EYES 12/25/19 09:00 01/24/20 08:59 12/25/19 15:12 Ceftriaxone Sodium 1 gm/ Dextrose 55 ml @ 110 mls/hr Q24H IVPB 12/25/19 14:00 01/01/20 13:59 12/26/19 14:26 Hydroxychloroquine Sulfate (Plaquenil) 200 mg Q12HR ORAL 12/27/19 09:00 12/30/19 21:01 Ondansetron HCl (Zofran) 4 mg Q6H PRN IVP Nausea & Vomiting 12/24/19 19:00 01/23/20 18:59 Patient Own Medication (Patient's Own Med) 1 ea DAILY@1500 ORAL 12/27/19 15:00 01/26/20 14:59 Sodium Chloride 1,000 ml @ 100 mls/hr Q10H IV 12/24/19 19:00 01/23/20 18:59 12/27/19 06:14 Tamsulosin HCl (Flomax) 0.4 mg DAILY ORAL 12/25/19 09:00 01/24/20 08:59 12/27/19 09:03 Tramadol HCl (Ultram) 50 mg Q6H PRN ORAL For Pain 12/24/19 22:30 12/31/19 22:29 Aysha Beal MD December 27, 2019 10:49
--- NOTE | 2019-12-27 11:16 | Pulmonology Progress Note ---
Subjective ROS Limited/Unobtainable: Yes Interval Events: None new Constitutional: Denies: fever HEENT: Repors: no symptoms Respiratory: Reports: dry cough, shortness of breath Cardiovascular: Reports: no symptoms Gastrointestinal/Abdominal: Reports: no symptoms Genitourinary: Reports: no symptoms Allergies: Coded Allergies: No Known Allergies (Unverified , 12/24/19) Objective Last 24 Hour Vital Signs Date Time Temp Pulse Resp B/P (MAP) Pulse Ox O2 Delivery O2 Flow Rate FiO2 12/27/19 08:00 98.7 84 19 101/55 (70) 97 12/27/19 04:00 98.4 95 18 95/60 (72) 95 12/27/19 00:00 98.5 94 20 94/59 (71) 95 12/26/19 21:00 Room Air 12/26/19 20:00 98.6 97 18 97/64 (75) 96 12/26/19 16:00 96.8 71 18 123/81 (95) 95 12/26/19 12:00 96.6 78 17 108/70 (83) 95 Intake and Output 12/26/19 12/27/19 19:00 07:00 Intake Total 1400 ml 1240 ml Output Total 1400 ml 500 ml Balance 0 ml 740 ml Intake Oral 600 ml 240 ml IV Total 800 ml 1000 ml Output Urine Total 1400 ml 500 ml # Bowel Movements 1 General Appearance: no acute distress HEENT: mucous membranes moist Abdomen: soft, non tender Extremities: no edema Neurologic/Psychiatric: other - sleeping Microbiology Date/Time Source Procedure Growth Status 12/24/19 13:48 Blood Blood Culture - Preliminary NO GROWTH AFTER 48 HOURS Resulted 12/24/19 13:33 Blood Blood Culture - Preliminary NO GROWTH AFTER 48 HOURS Resulted 12/24/19 14:13 Nasal Nares MRSA Culture - Final NO METHICILLIN RESISTANT STAPH AUREUS... Complete 12/24/19 13:48 Nasopharynx Coronavirus COVID-19 PCR (JAMES) - Final Complete 12/24/19 14:15 Urine,Clean Catch Urine Culture - Final Providencia Stuartii Complete 12/24/19 14:13 Rectum - Final NO CARBAPENEM-RESISTANT ENTEROBACTERI... Complete 12/24/19 14:13 Rectum VRE Culture - Final NO VANCOMYCIN RESISTANT ENTEROCOCCUS ... Complete Laboratory Tests 12/27/19 06:20: White Blood Count 5.6, Red Blood Count 4.40L, Hemoglobin 12.2L, Hematocrit 36.7L , Mean Corpuscular Volume 83, Mean Corpuscular Hemoglobin 27.8, Mean Corpuscular Hemoglobin Concent 33.4, Red Cell Distribution Width 11.6, Platelet Count 306, Mean Platelet Volume 6.0L, Neutrophils (%) (Auto) , Lymphocytes (%) ( Auto) , Monocytes (%) (Auto) , Eosinophils (%) (Auto) , Basophils (%) (Auto) , Differential Total Cells Counted 100, Neutrophils % (Manual) 38L, Lymphocytes % (Manual) 51H, Monocytes % (Manual) 8, Eosinophils % (Manual) 2, Basophils % ( Manual) 1, Band Neutrophils 0, Platelet Estimate Adequate, Platelet Morphology Normal, Red Blood Cell Morphology Normal, Sodium Level 141, Potassium Level 4.3 , Chloride Level 107, Carbon Dioxide Level 26, Anion Gap 9, Blood Urea Nitrogen 6L, Creatinine 0.8, Estimat Glomerular Filtration Rate > 60, Glucose Level 95, Calcium Level 8.4L, Total Bilirubin 0.3, Aspartate Amino Transf (AST/SGOT) 60H, Alanine Aminotransferase (ALT/SGPT) 100H, Alkaline Phosphatase 74, Total Protein 7.9, Albumin 2.7L, Globulin 5.2, Albumin/Globulin Ratio 0.5L Current Medications Medications (Trade) Dose Ordered Sig/Val Route PRN Reason Start Time Stop Time Status Last Admin Dose Admin Acetaminophen (Tylenol) 650 mg Q6H PRN ORAL Temp >100.5 12/24/19 22:30 01/23/20 22:29 Albuterol/ Ipratropium (Combivent Respimat) 1 puff Q4HR INH 12/25/19 09:00 01/24/20 08:59 Artificial Tears (Akwa-Tears) 1 drop THREE TIMES A DAY BOTH EYES 12/25/19 09:00 01/24/20 08:59 12/25/19 15:12 Ceftriaxone Sodium 1 gm/ Dextrose 55 ml @ 110 mls/hr Q24H IVPB 12/25/19 14:00 01/01/20 13:59 12/26/19 14:26 Hydroxychloroquine Sulfate (Plaquenil) 200 mg Q12HR ORAL 12/27/19 09:00 12/30/19 21:01 Ondansetron HCl (Zofran) 4 mg Q6H PRN IVP Nausea & Vomiting 12/24/19 19:00 01/23/20 18:59 Patient Own Medication (Patient's Own Med) 1 ea DAILY@1500 ORAL 12/27/19 15:00 01/26/20 14:59 Sodium Chloride 1,000 ml @ 100 mls/hr Q10H IV 12/24/19 19:00 01/23/20 18:59 12/27/19 06:14 Tamsulosin HCl (Flomax) 0.4 mg DAILY ORAL 12/25/19 09:00 01/24/20 08:59 12/27/19 09:03 Tramadol HCl (Ultram) 50 mg Q6H PRN ORAL For Pain 12/24/19 22:30 12/31/19 22:29 Assessment/Plan Assessment/Plan IMPRESSION: 1. Providencia UTI. 2. retirement resident. 3. Hypertension. 4. GERD. 5. COVID 19 pneumonia DISCUSSION: Currently, his status is stable. He is on RA I will follow carefully Continue fluids,breathing treatments, abx as well as p.r.n. medications. Ranjan Adam Omar Syed MD December 27, 2019 11:16
[2019-12-27 12:00] VITALS: BP 110/69
--- NOTE | 2019-12-27 14:23 | NUR ---
CASE MANAGEMENT:REVIEW SI;COVID-19 PNEUMONIA PROVIDENCIA UTI. 98.7 95 20 94/59 95% ON RA AST 60 ALT 100 ALB 2.7 IS;PLAQUENIL PO Q12 HRS UNTIL 12/30/19 ROCEPHIN IV Q24 HRS FLOMAX PO QD COMBIVENT ING Q4 HRS IVF NS @ 100 ML/HR MED SURG STATUS DCP;FROM [facility]
[2019-12-27] MEDS: cefTRIAXone 1 GM in D5W 55 ML IVPB SCH (14:29)
--- NOTE | 2019-12-27 15:19 | NUR ---
NURSE NOTES: Patient refused 9am dose of Plaquenil. Educated on risks and benefits x 3, patient still refused. He is AxOx4. Dr. Marcello Angulo notified on rounds that patient has refused to take this medication. Also left message for ordering MD Dr. Beal. Awaiting response.
--- NOTE | 2019-12-27 15:26 | NUR ---
*-* INSURANCE *-* UPDATED CLINICALS HAVE BEEN FAXED TO: [facility] NHM: SARINA RIVERA P- [phone] F- [phone]...REVIEW/CLINICAL
[2019-12-27 16:00] VITALS: BP 107/75
--- NOTE | 2019-12-27 19:20 | NUR ---
NURSE NOTES: Received patient on bed awake. no sob. denies any pain or discomfort. with iv line on the right forearm. running ns @ 100ml/hr. with Mao catheter draining well. reiterated to call or ask for assistance. bed locked and in lowest position. call light nad light button within easy reach. will strictly follow isolation precautions. will continue plan of care.
--- NOTE | 2019-12-27 19:36 | NUR ---
HAND-OFF: Report given to Minerva HUITRON.
[2019-12-27 20:00] VITALS: BP 111/70
--- NOTE | 2019-12-27 20:45 | NUR ---
NURSE NOTES: patient refused combivent puff and hydroxycholoroquine. explained risks and benefits. patient still refused medications. per morning nurse, patient refused same medications kacey barnes md and md barraza informed.
[2019-12-28 00:03] VITALS: BP 118/74
--- NOTE | 2019-12-28 01:44 | Progress Note ---
DATE: 12/27/2019 SUBJECTIVE: This is a 59-year-old male came with COVID positive, fever, nausea, vomiting. Patient currently doing better. Nausea and vomiting subsided and fever is also subsided. OBJECTIVE: VITAL SIGNS: Stable. CHEST: Bilaterally clear. CARDIOVASCULAR: Regular rhythm. ABDOMEN: Soft. EXTREMITIES: CCE. ASSESSMENT: 1. COVID pneumonia. 2. UTI. 3. Dehydration. 4. HIV. PLAN: 1. Continue current treatment. 2. Continue isolation. 3. Antibiotics. 4. IV fluids. Davey Quintana M.D. DR: ARMANI JOB#: [id number] CC:
[2019-12-28 04:00] VITALS: BP 110/72
--- NOTE | 2019-12-28 07:09 | NUR ---
HAND-OFF: Report given to renetta page rn.
--- NOTE | 2019-12-28 07:17 | NUR ---
NURSE NOTES: Report received from Minerva HUITRON. Seen on rounds, AxOx4, not in distress, no complaints of pain. Tolerating room air. PIV on right forearm intact and infusing IVF as ordered. Mao cath secured and draining well. Bed low and locked, siderails up x3, zone alarms on 1, call light placed within reach and instructed to use to call nurse. Isolation precautions maintained. Will continue to monitor and implement plan of care.
[2019-12-28 08:00] VITALS: BP 102/69
[2019-12-28] MEDS: Tamsulosin 0.4mg cap ORAL SCH (09:04)
--- NOTE | 2019-12-28 09:15 | NUR ---
NURSE NOTES: Patient refused Plaquenil and Combivent. Offered x3, educated on risks and benefits, patient still refused. Patient is AxOx4.
--- NOTE | 2019-12-28 10:51 | Pulmonology Progress Note ---
Subjective ROS Limited/Unobtainable: Yes Interval Events: None new Constitutional: Denies: fever HEENT: Repors: no symptoms Respiratory: Reports: dry cough, shortness of breath Cardiovascular: Reports: no symptoms Gastrointestinal/Abdominal: Reports: no symptoms Genitourinary: Reports: no symptoms Allergies: Coded Allergies: No Known Allergies (Unverified , 12/24/19) Objective Last 24 Hour Vital Signs Date Time Temp Pulse Resp B/P (MAP) Pulse Ox O2 Delivery O2 Flow Rate FiO2 12/28/19 09:00 Room Air 12/28/19 08:00 97.9 96 17 102/69 (80) 97 12/28/19 04:00 98.6 80 18 110/72 (85) 95 12/28/19 00:03 98.6 82 18 118/74 (89) 96 12/27/19 21:00 Room Air 12/27/19 20:00 98.2 79 17 111/70 (84) 96 12/27/19 16:00 97.8 83 17 107/75 (86) 95 12/27/19 12:00 97.7 86 18 110/69 (83) 98 Intake and Output 12/27/19 12/28/19 19:00 07:00 Intake Total 1455 ml 1200 ml Output Total 1500 ml 1200 ml Balance -45 ml 0 ml Intake Oral 400 ml 300 ml IV Total 1055 ml 900 ml Output Urine Total 1500 ml 1200 ml General Appearance: no acute distress HEENT: mucous membranes moist Abdomen: soft, non tender Extremities: no edema Neurologic/Psychiatric: other - sleeping Current Medications Medications (Trade) Dose Ordered Sig/Val Route PRN Reason Start Time Stop Time Status Last Admin Dose Admin Acetaminophen (Tylenol) 650 mg Q6H PRN ORAL Temp >100.5 12/24/19 22:30 01/23/20 22:29 Albuterol/ Ipratropium (Combivent Respimat) 1 puff Q4HR INH 12/25/19 09:00 01/24/20 08:59 Artificial Tears (Akwa-Tears) 1 drop THREE TIMES A DAY BOTH EYES 12/25/19 09:00 01/24/20 08:59 12/28/19 09:05 Ceftriaxone Sodium 1 gm/ Dextrose 55 ml @ 110 mls/hr Q24H IVPB 12/25/19 14:00 01/01/20 13:59 12/27/19 14:29 Hydroxychloroquine Sulfate (Plaquenil) 200 mg Q12HR ORAL 12/27/19 09:00 12/30/19 21:01 Ondansetron HCl (Zofran) 4 mg Q6H PRN IVP Nausea & Vomiting 12/24/19 19:00 01/23/20 18:59 Patient Own Medication (Patient's Own Med) 1 ea DAILY@1500 ORAL 12/27/19 15:00 01/26/20 14:59 12/27/19 14:29 Sodium Chloride 1,000 ml @ 100 mls/hr Q10H IV 12/24/19 19:00 01/23/20 18:59 12/28/19 02:28 Tamsulosin HCl (Flomax) 0.4 mg DAILY ORAL 12/25/19 09:00 01/24/20 08:59 12/28/19 09:04 Tramadol HCl (Ultram) 50 mg Q6H PRN ORAL For Pain 12/24/19 22:30 12/31/19 22:29 Assessment/Plan Assessment/Plan IMPRESSION: 1. Providencia UTI. 2. snf resident. 3. Hypertension. 4. GERD. 5. COVID 19 pneumonia DISCUSSION: Currently, his status is stable. He is on RA I will follow carefully Continue fluids,breathing treatments, abx as well as p.r.n. medications. Ranjan Adam Omar Syed MD December 28, 2019 10:51
--- NOTE | 2019-12-28 10:55 | NUR ---
NURSE NOTES: Dr. Beal in to do rounds, notified her that patient has been refusing to take Plaquenil. MD is aware and will document.
--- NOTE | 2019-12-28 11:17 | Infectious Diseases Prog Note ---
Assessment/Plan Assessment/Plan antibiotics : ceftriaxone, hydroxychloroquine A 1. providencia UTI 2. COVID 19 pneumonia on room air, 97 percent O2 saturation 3. dementia 4. HIV P 1. continue ceftriaxone 2 more days 2. patient refusing hydroxychloroquine, will dc 3. will follow up cultures 4. continue isolation Subjective ROS Limited/Unobtainable: Yes Allergies: Coded Allergies: No Known Allergies (Unverified , 12/24/19) Objective Vital Signs Last 24 Hour Vital Signs Date Time Temp Pulse Resp B/P (MAP) Pulse Ox O2 Delivery O2 Flow Rate FiO2 12/28/19 09:00 Room Air 12/28/19 08:00 97.9 96 17 102/69 (80) 97 12/28/19 04:00 98.6 80 18 110/72 (85) 95 12/28/19 00:03 98.6 82 18 118/74 (89) 96 12/27/19 21:00 Room Air 12/27/19 20:00 98.2 79 17 111/70 (84) 96 12/27/19 16:00 97.8 83 17 107/75 (86) 95 12/27/19 12:00 97.7 86 18 110/69 (83) 98 Height (Feet): 5 Height (Inches): 6.00 Weight (Pounds): 110 Current Medications Medications (Trade) Dose Ordered Sig/Val Route PRN Reason Start Time Stop Time Status Last Admin Dose Admin Acetaminophen (Tylenol) 650 mg Q6H PRN ORAL Temp >100.5 12/24/19 22:30 01/23/20 22:29 Albuterol/ Ipratropium (Combivent Respimat) 1 puff Q4HR INH 12/25/19 09:00 01/24/20 08:59 Artificial Tears (Akwa-Tears) 1 drop THREE TIMES A DAY BOTH EYES 12/25/19 09:00 01/24/20 08:59 12/28/19 09:05 Ceftriaxone Sodium 1 gm/ Dextrose 55 ml @ 110 mls/hr Q24H IVPB 12/25/19 14:00 01/01/20 13:59 12/27/19 14:29 Hydroxychloroquine Sulfate (Plaquenil) 200 mg Q12HR ORAL 12/27/19 09:00 12/30/19 21:01 Ondansetron HCl (Zofran) 4 mg Q6H PRN IVP Nausea & Vomiting 12/24/19 19:00 01/23/20 18:59 Patient Own Medication (Patient's Own Med) 1 ea DAILY@1500 ORAL 12/27/19 15:00 01/26/20 14:59 12/27/19 14:29 Sodium Chloride 1,000 ml @ 100 mls/hr Q10H IV 12/24/19 19:00 01/23/20 18:59 12/28/19 02:28 Tamsulosin HCl (Flomax) 0.4 mg DAILY ORAL 12/25/19 09:00 01/24/20 08:59 12/28/19 09:04 Tramadol HCl (Ultram) 50 mg Q6H PRN ORAL For Pain 12/24/19 22:30 12/31/19 22:29 Aysha Beal MD December 28, 2019 11:17
[2019-12-28 12:00] VITALS: BP 118/71
[2019-12-28] MEDS: cefTRIAXone 1 GM in D5W 55 ML IVPB SCH (13:23)
[2019-12-28] MEDS: GENVOYA ORAL SCH (15:08)
[2019-12-28 16:00] VITALS: BP 121/75
--- NOTE | 2019-12-28 19:23 | NUR ---
HAND-OFF: Report given to Jefferyu RN.
--- NOTE | 2019-12-28 19:30 | NUR ---
NURSE NOTES: Patient awake and verbally responsive. Alert to own ability and needs. Breathing unlabored on room air without distress. Denies pain or discomfort at this time. IV noted on right forearm intact and patent running NS at 100mls/hr. Mao intact and draining urine to gravity. Mao anchor secured to left thigh. Bed placed at the lowest with alarm, brake, and siderails up for safety. Call light placed within reach. Will continue to monitor.
[2019-12-28 20:00] VITALS: BP 96/56
--- NOTE | 2019-12-28 21:00 | NUR ---
NURSE NOTES: Patient refused Combivent Respimat inhaler. Explained risk and benefit x 3, but continues to refuse. Patient breathing unlabored on room air. Denies discomfort, pain, or sob. Will continue to monitor.
[2019-12-28] MEDS ORDERED: D5 1/2NS 1000ml IV ONE (21:23)
[2019-12-28] MEDS ORDERED: Tubing Blood Filter IV ONE (21:23)
[2019-12-28] MEDS ORDERED: NS 275ml ONE (21:23)
[2019-12-28] MEDS ORDERED: D5W 275ml ONE (21:23)
[2019-12-29] VITALS: BP 121/77
--- NOTE | 2019-12-29 01:00 | Progress Note ---
DATE: 12/28/2019 SUBJECTIVE: This is an elderly man, currently comfortable in the bed, feeling better. He came with COVID. OBJECTIVE: VITAL SIGNS: Stable. CHEST: Bilaterally clear. CARDIOVASCULAR: Regular rhythm. ABDOMEN: Soft. EXTREMITIES: CCE. NEUROLOGICAL: Generalized weakness. ASSESSMENT: 1. COVID pneumonia. 2. Dementia. 3. HIV. 4. Failure to thrive. PLAN: 1. Currently continue antibiotic. 2. Continue bronchodilator treatment. 3. Continue isolation. . Davey Quintana M.D. DR: MARIA EUGENIA JOB#: [id number] CC:
[2019-12-29 04:00] VITALS: BP 125/82
--- NOTE | 2019-12-29 07:29 | NUR ---
HAND-OFF: Report given to TOMY Hay. Plan of care endorsed. Round done with the RN. Patient in stable condition.
[2019-12-29 08:00] VITALS: BP 122/82
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
--- NOTE | 2019-12-29 09:24 | Pulmonology Progress Note ---
Subjective ROS Limited/Unobtainable: Yes Interval Events: None new Constitutional: Denies: fever HEENT: Repors: no symptoms Respiratory: Reports: dry cough, shortness of breath Cardiovascular: Reports: no symptoms Gastrointestinal/Abdominal: Reports: no symptoms Genitourinary: Reports: no symptoms Allergies: Coded Allergies: No Known Allergies (Unverified , 12/24/19) Objective Last 24 Hour Vital Signs Date Time Temp Pulse Resp B/P (MAP) Pulse Ox O2 Delivery O2 Flow Rate FiO2 12/29/19 04:00 97.3 80 22 125/82 (96) 97 12/29/19 00:00 96.8 87 20 121/77 (92) 97 12/28/19 21:00 Room Air 12/28/19 20:00 98.4 97 22 96/56 (69) 97 12/28/19 16:00 97.4 73 17 121/75 (90) 98 12/28/19 15:27 Room Air 12/28/19 12:00 98.5 84 18 118/71 (87) 97 Intake and Output 12/28/19 12/29/19 19:00 07:00 Intake Total 1655 ml 1260 ml Output Total 1000 ml 1250 ml Balance 655 ml 10 ml Intake Oral 400 ml 360 ml IV Total 1255 ml 900 ml Output Urine Total 1000 ml 1250 ml # Bowel Movements 2 General Appearance: no acute distress HEENT: mucous membranes moist Abdomen: soft, non tender Extremities: no edema Neurologic/Psychiatric: other - sleeping Current Medications Medications (Trade) Dose Ordered Sig/Val Route PRN Reason Start Time Stop Time Status Last Admin Dose Admin Acetaminophen (Tylenol) 650 mg Q6H PRN ORAL Temp >100.5 12/24/19 22:30 01/23/20 22:29 Albuterol/ Ipratropium (Combivent Respimat) 1 puff Q4HR INH 12/25/19 09:00 01/24/20 08:59 Artificial Tears (Akwa-Tears) 1 drop THREE TIMES A DAY BOTH EYES 12/25/19 09:00 01/24/20 08:59 12/28/19 09:05 Ceftriaxone Sodium 1 gm/ Dextrose 55 ml @ 110 mls/hr Q24H IVPB 12/25/19 14:00 01/01/20 13:59 12/28/19 13:23 Ondansetron HCl (Zofran) 4 mg Q6H PRN IVP Nausea & Vomiting 12/24/19 19:00 01/23/20 18:59 Patient Own Medication (Patient's Own Med) 1 ea DAILY@1500 ORAL 12/27/19 15:00 01/26/20 14:59 12/28/19 15:08 Sodium Chloride 1,000 ml @ 100 mls/hr Q10H IV 12/24/19 19:00 01/23/20 18:59 12/29/19 02:00 Tamsulosin HCl (Flomax) 0.4 mg DAILY ORAL 12/25/19 09:00 01/24/20 08:59 12/28/19 09:04 Tramadol HCl (Ultram) 50 mg Q6H PRN ORAL For Pain 12/24/19 22:30 12/31/19 22:29 Assessment/Plan Assessment/Plan IMPRESSION: 1. Providencia UTI. 2. residential resident. 3. Hypertension. 4. GERD. 5. COVID 19 pneumonia DISCUSSION: Currently, his status is stable. He is on RA I will follow carefully Continue fluids,breathing treatments, abx as well as p.r.n. medications. Ranjan Adam Omar Syed MD December 29, 2019 09:24
[2019-12-29] MEDS: Tamsulosin 0.4mg cap ORAL SCH (11:29)
[2019-12-29 12:00] VITALS: BP 126/86
[2019-12-29] MEDS: cefTRIAXone 1 GM in D5W 55 ML IVPB SCH (14:43)
[2019-12-29] MEDS: GENVOYA ORAL SCH (14:44)
--- NOTE | 2019-12-29 15:10 | Infectious Diseases Prog Note ---
Assessment/Plan Assessment/Plan A; 1. Providencia urinary tract infection. 2. COVID-19 pneumonia 3. Dementia. 4. Depression. 5. Lymphocytosis 6. elevated transaminase &. HIV PLAN: 1. Continue ceftriaxone x 1 day 2. Continue isolation. 3. Continue HAART Subjective ROS Limited/Unobtainable: No Constitutional: Reports: no symptoms Respiratory: Reports: no symptoms Gastrointestinal/Abdominal: Reports: no symptoms Musculoskeletal: Reports: pain Allergies: Coded Allergies: No Known Allergies (Unverified , 12/24/19) Objective Vital Signs Last 24 Hour Vital Signs Date Time Temp Pulse Resp B/P (MAP) Pulse Ox O2 Delivery O2 Flow Rate FiO2 12/29/19 12:00 97.7 81 18 126/86 (99) 97 12/29/19 09:00 Room Air 12/29/19 08:00 98.7 84 17 122/82 (95) 97 12/29/19 04:00 97.3 80 22 125/82 (96) 97 12/29/19 00:00 96.8 87 20 121/77 (92) 97 12/28/19 21:00 Room Air 12/28/19 20:00 98.4 97 22 96/56 (69) 97 12/28/19 16:00 97.4 73 17 121/75 (90) 98 12/28/19 15:27 Room Air Height (Feet): 5 Height (Inches): 6.00 Weight (Pounds): 110 General Appearance: no acute distress HEENT: mucous membranes moist Respiratory/Chest: lungs clear Abdomen: soft, non tender Extremities: no edema Neurologic/Psychiatric: alert, responsive Musculoskeletal: atrophy Current Medications Medications (Trade) Dose Ordered Sig/Val Route PRN Reason Start Time Stop Time Status Last Admin Dose Admin Acetaminophen (Tylenol) 650 mg Q6H PRN ORAL Temp >100.5 12/24/19 22:30 01/23/20 22:29 Albuterol/ Ipratropium (Combivent Respimat) 1 puff Q4HR INH 12/25/19 09:00 01/24/20 08:59 Artificial Tears (Akwa-Tears) 1 drop THREE TIMES A DAY BOTH EYES 12/25/19 09:00 01/24/20 08:59 12/29/19 14:45 Ceftriaxone Sodium 1 gm/ Dextrose 55 ml @ 110 mls/hr Q24H IVPB 12/25/19 14:00 01/01/20 13:59 12/29/19 14:43 Ondansetron HCl (Zofran) 4 mg Q6H PRN IVP Nausea & Vomiting 12/24/19 19:00 01/23/20 18:59 Patient Own Medication (Patient's Own Med) 1 ea DAILY@1500 ORAL 12/27/19 15:00 01/26/20 14:59 12/29/19 14:44 Sodium Chloride 1,000 ml @ 100 mls/hr Q10H IV 12/24/19 19:00 01/23/20 18:59 12/29/19 02:00 Tamsulosin HCl (Flomax) 0.4 mg DAILY ORAL 12/25/19 09:00 01/24/20 08:59 12/29/19 11:29 Tramadol HCl (Ultram) 50 mg Q6H PRN ORAL For Pain 12/24/19 22:30 12/31/19 22:29 Baron Angulo MD December 29, 2019 15:10
[2019-12-29 16:00] VITALS: BP 127/83
--- NOTE | 2019-12-29 19:40 | NUR ---
NURSE NOTES: Received patient on bed, awake and verbally responsive. iv line on the right forearm running ns @ 100ML/HR. WITH HILL catheter draining an gaudencio colored urine. denies any pain or discomfort. no sob. bed locked and in lowest position. call light and light button within easy reach. will continue plan of care.
--- NOTE | 2019-12-29 19:59 | NUR ---
HAND-OFF: Report given to TOMY Philip.
[2019-12-29 20:00] VITALS: BP 105/73
[2019-12-30] VITALS: BP 101/76
[2019-12-30 04:00] VITALS: BP 103/59
--- NOTE | 2019-12-30 07:22 | NUR ---
HAND-OFF: Report given to cecelia bosch rn.
--- NOTE | 2019-12-30 07:47 | NUR ---
pt is in the bed awake. respiration is even and unlabored on room air. no facial grimacing for pain noted. no coughing noted at this time. place call light within reach.
[2019-12-30 08:00] VITALS: BP 100/97
[2019-12-30] MEDS: Tamsulosin 0.4mg cap ORAL SCH (08:54)
--- NOTE | 2019-12-30 11:25 | Infectious Diseases Prog Note ---
Assessment/Plan Assessment/Plan antibiotics : ceftriaxone, hydroxychloroquine A 1. providencia UTI s/p rx 2. COVID 19 pneumonia on room air, 96 percent O2 saturation 3. dementia 4. HIV P 1. d/c ceftriaxone 2. patient refusing hydroxychloroquine 3. will follow up cultures 4. continue isolation Subjective ROS Limited/Unobtainable: Yes Allergies: Coded Allergies: No Known Allergies (Unverified , 12/24/19) Objective Vital Signs Last 24 Hour Vital Signs Date Time Temp Pulse Resp B/P (MAP) Pulse Ox O2 Delivery O2 Flow Rate FiO2 12/30/19 09:00 Room Air 12/30/19 08:00 98.6 87 18 100/97 (98) 96 12/30/19 04:00 98.2 81 22 103/59 (74) 96 12/30/19 00:00 98.0 80 19 101/76 (84) 96 12/29/19 21:00 Room Air 12/29/19 20:00 97.8 76 22 105/73 (84) 96 12/29/19 16:00 98.1 86 18 127/83 (98) 99 12/29/19 12:00 97.7 81 18 126/86 (99) 97 Height (Feet): 5 Height (Inches): 6.00 Weight (Pounds): 110 Current Medications Medications (Trade) Dose Ordered Sig/Val Route PRN Reason Start Time Stop Time Status Last Admin Dose Admin Acetaminophen (Tylenol) 650 mg Q6H PRN ORAL Temp >100.5 12/24/19 22:30 01/23/20 22:29 Albuterol/ Ipratropium (Combivent Respimat) 1 puff Q4HR INH 12/25/19 09:00 01/24/20 08:59 12/30/19 09:09 Artificial Tears (Akwa-Tears) 1 drop THREE TIMES A DAY BOTH EYES 12/25/19 09:00 01/24/20 08:59 12/30/19 09:09 Ceftriaxone Sodium 1 gm/ Dextrose 55 ml @ 110 mls/hr Q24H IVPB 12/25/19 14:00 01/01/20 13:59 12/29/19 14:43 Ondansetron HCl (Zofran) 4 mg Q6H PRN IVP Nausea & Vomiting 12/24/19 19:00 01/23/20 18:59 Patient Own Medication (Patient's Own Med) 1 ea DAILY@1500 ORAL 12/27/19 15:00 01/26/20 14:59 12/29/19 14:44 Sodium Chloride 1,000 ml @ 100 mls/hr Q10H IV 12/24/19 19:00 01/23/20 18:59 12/30/19 05:27 Tamsulosin HCl (Flomax) 0.4 mg DAILY ORAL 12/25/19 09:00 01/24/20 08:59 12/30/19 08:54 Tramadol HCl (Ultram) 50 mg Q6H PRN ORAL For Pain 12/24/19 22:30 12/31/19 22:29 Aysha Beal MD December 30, 2019 11:25
[2019-12-30 12:00] VITALS: BP 105/62
--- NOTE | 2019-12-30 13:40 | NUR ---
*-* INSURANCE *-* UPDATED CLINICALS HAVE BEEN FAXED TO: [facility] MSM: SARINA RIVERA P- [phone] F- [phone]...REVIEW/CLINICAL
[2019-12-30] MEDS: GENVOYA ORAL SCH (15:07)
--- NOTE | 2019-12-30 15:53 | Pulmonology Progress Note ---
Subjective ROS Limited/Unobtainable: Yes Interval Events: None new Constitutional: Reports: no symptoms HEENT: Repors: no symptoms Respiratory: Reports: dry cough, shortness of breath Cardiovascular: Reports: no symptoms Gastrointestinal/Abdominal: Reports: no symptoms Genitourinary: Reports: no symptoms Musculoskeletal: Reports: pain Allergies: Coded Allergies: No Known Allergies (Unverified , 12/24/19) Objective Last 24 Hour Vital Signs Date Time Temp Pulse Resp B/P (MAP) Pulse Ox O2 Delivery O2 Flow Rate FiO2 12/30/19 12:00 98.8 83 18 105/62 (76) 98 12/30/19 09:00 Room Air 12/30/19 08:00 98.6 87 18 100/97 (98) 96 12/30/19 04:00 98.2 81 22 103/59 (74) 96 12/30/19 00:00 98.0 80 19 101/76 (84) 96 12/29/19 21:00 Room Air 12/29/19 20:00 97.8 76 22 105/73 (84) 96 12/29/19 16:00 98.1 86 18 127/83 (98) 99 Intake and Output 12/29/19 12/30/19 19:00 07:00 Intake Total 655 ml Output Total 1200 ml 300 ml Balance -545 ml -300 ml IV Total 655 ml Output Urine Total 1200 ml 300 ml # Voids 1 General Appearance: no acute distress HEENT: mucous membranes moist Abdomen: soft, non tender Extremities: no edema Neurologic/Psychiatric: alert, responsive Musculoskeletal: atrophy Current Medications Medications (Trade) Dose Ordered Sig/Val Route PRN Reason Start Time Stop Time Status Last Admin Dose Admin Acetaminophen (Tylenol) 650 mg Q6H PRN ORAL Temp >100.5 12/24/19 22:30 01/23/20 22:29 Albuterol/ Ipratropium (Combivent Respimat) 1 puff Q4HR INH 12/25/19 09:00 01/24/20 08:59 12/30/19 13:03 Artificial Tears (Akwa-Tears) 1 drop THREE TIMES A DAY BOTH EYES 12/25/19 09:00 01/24/20 08:59 12/30/19 13:03 Ondansetron HCl (Zofran) 4 mg Q6H PRN IVP Nausea & Vomiting 12/24/19 19:00 01/23/20 18:59 Patient Own Medication (Patient's Own Med) 1 ea DAILY@1500 ORAL 12/27/19 15:00 01/26/20 14:59 12/30/19 15:07 Sodium Chloride 1,000 ml @ 100 mls/hr Q10H IV 12/24/19 19:00 01/23/20 18:59 12/30/19 15:21 Tamsulosin HCl (Flomax) 0.4 mg DAILY ORAL 12/25/19 09:00 01/24/20 08:59 12/30/19 08:54 Tramadol HCl (Ultram) 50 mg Q6H PRN ORAL For Pain 12/24/19 22:30 12/31/19 22:29 Assessment/Plan Assessment/Plan IMPRESSION: 1. Providencia UTI. 2. [facility] resident. 3. Hypertension. 4. GERD. 5. COVID 19 pneumonia DISCUSSION: Currently, his status is stable. He is on RA I will follow carefully Continue fluids,breathing treatments, abx as well as p.r.n. medications. Ranjan Adam Omar Syed MD December 30, 2019 15:53
[2019-12-30 16:00] VITALS: BP 109/66
--- NOTE | 2019-12-30 16:02 | NUR ---
CASE MANAGEMENT:REVIEW 12/28/19 SI;COVID-19 PNEUMONIA (12/24/19) PROVIDENCIA UTI. 98.5 97 22 96/56 97% ON RA IS;ROCEPHIN IN Q24 HR FLOMAX PO QD COMBIVENT INH Q4 HR IVF NS @ 100 ML/HR MED SURG STATUS DCP;FROM [facility] CASE MANAGEMENT:REVIEW 12/29/19 SI;COVID-19 PNEUMONIA (12/24/19) PROVIDENCIA UTI. 98.7 86 22 105/73 96% ON RA IS;ROCEPHIN IN Q24 HR FLOMAX PO QD COMBIVENT INH Q4 HR IVF NS @ 100 ML/HR MED SURG STATUS DCP;FROM [facility] CASE MANAGEMENT:REVIEW 12/30/19 SI;COVID-19 PNEUMONIA (12/24/19) PROVIDENCIA UTI. 98.8 87 22 103/59 96% ON RA IS;ROCEPHIN IN Q24 HR FLOMAX PO QD COMBIVENT INH Q4 HR IVF NS @ 100 ML/HR MED SURG STATUS DCP;FROM [facility]
--- NOTE | 2019-12-30 16:16 | NUR ---
DISCHARGE PLANNING PATIENT HAS BEEN REFERRED TO THE FOLLOWING COVID-19 ONLY SNF FACILITIES [facility] P: [phone] F: [phone] [facility] P: [phone] F: [phone] [facility] P: [phone] F: [phone]
--- NOTE | 2019-12-30 19:31 | NUR ---
HAND-OFF: Report given to Yina.
[2019-12-30 20:00] VITALS: BP 106/63
--- NOTE | 2019-12-30 20:10 | NUR ---
NURSE NOTES: Received patient asleep in bed, no s/s of acute distress. IV access intact, running IVF maintenance at 100ml/hr. Bed low and locked, 2 side rails up.
[2019-12-31] VITALS: BP 105/68
--- NOTE | 2019-12-31 02:30 | Progress Note ---
DATE: 12/30/2019 SUBJECTIVE: This is elderly male, currently in the bed, comfortable, no distress. No fever. PHYSICAL EXAMINATION: VITAL SIGNS: Stable. CHEST: Bilaterally clear. CARDIOVASCULAR: Regular rhythm. ABDOMEN: Soft. EXTREMITIES: CCE. ASSESSMENT: 1. Fever. 2. COVID positive. 3. Dementia. 4. HIV. PLAN: Continue current treatment. Davey Quintana M.D. DR: Primitivo JOB#: [id number] CC:
[2019-12-31 04:00] VITALS: BP 96/64
--- NOTE | 2019-12-31 07:22 | NUR ---
HAND-OFF: Report given to TOMY Ruiz.
--- NOTE | 2019-12-31 07:52 | NUR ---
made initial rounds, pt is in the bed awake, and verbally responsive. no SOB noted. pt denies any pain and discomfort; remains calm in bed. bed in locked position, call light is within reach, will continue to follow plan of care.
[2019-12-31 08:00] VITALS: BP 115/68
[2019-12-31] MEDS: Tamsulosin 0.4mg cap ORAL SCH (09:41)
--- NOTE | 2019-12-31 10:08 | NUR ---
RUG CLIPPER NOTE CALL MADE TO [facility], ANUJA BRANCH @ [phone] TO INFORM OF DC BARRIERS. NO ANSWER. VM LEFT WITH CALL BACK REQUEST. WILL FOLLOW UP.
--- NOTE | 2019-12-31 10:15 | NUR ---
RD ASSESSMENT & RECOMMENDATIONS SEE CARE ACTIVITY FOR COMPLETE ASSESSMENT DAILY ESTIMATED NEEDS: Needs based on HIV 50kg 30-35 kcals/kg 0172-6880 total kcals 1-2 g protein/kg 50-100 g total protein 25-30 mL/kg 2041-5670 total fluid mLs NUTRITION DIAGNOSIS: Increased kcal and pro needs r/t underweight status as evidenced by BMI underweight per guidelines, 77% of [place] Body Weight, h/o HIV. CURRENT DIET: ms Chopped PO DIET RECOMMENDATIONS: Regular diet, texture as tolerated / per HEALTH PHYSICS TECHNICIAN ADDITIONAL RECOMMENDATIONS: 1) Maintain calibrated bed scale wt d/t low BMI per EMR 2) HEALTH PHYSICS TECHNICIAN eval for appropiate texture 3) Add ensure enlive TID + snacks as tolerated 4) Updated CBC and CMP as able
--- NOTE | 2019-12-31 10:45 | Infectious Diseases Prog Note ---
Assessment/Plan Assessment/Plan antibiotics : none A 1. providencia UTI s/p rx 2. COVID 19 pneumonia patient refused hydroxychloroquine on room air, 98 percent O2 saturation 3. dementia 4. HIV P 1. observe off antibiotics 2. will follow up cultures 3. continue isolation Subjective ROS Limited/Unobtainable: Yes Allergies: Coded Allergies: No Known Allergies (Unverified , 12/24/19) Objective Vital Signs Last 24 Hour Vital Signs Date Time Temp Pulse Resp B/P (MAP) Pulse Ox O2 Delivery O2 Flow Rate FiO2 12/31/19 09:00 Room Air 12/31/19 08:00 97.4 75 17 115/68 (84) 96 12/31/19 04:00 97.8 85 19 96/64 (75) 98 12/31/19 00:00 98.7 86 18 105/68 (80) 98 12/30/19 22:17 Room Air 12/30/19 20:00 99.8 94 18 106/63 (77) 98 12/30/19 16:00 98.3 80 18 109/66 (80) 98 12/30/19 12:00 98.8 83 18 105/62 (76) 98 Height (Feet): 5 Height (Inches): 6.00 Weight (Pounds): 110 Current Medications Medications (Trade) Dose Ordered Sig/Val Route PRN Reason Start Time Stop Time Status Last Admin Dose Admin Acetaminophen (Tylenol) 650 mg Q6H PRN ORAL Temp >100.5 12/24/19 22:30 01/23/20 22:29 Albuterol/ Ipratropium (Combivent Respimat) 1 puff Q4HR INH 12/25/19 09:00 01/24/20 08:59 Artificial Tears (Akwa-Tears) 1 drop THREE TIMES A DAY BOTH EYES 12/25/19 09:00 01/24/20 08:59 12/29/19 14:45 Ondansetron HCl (Zofran) 4 mg Q6H PRN IVP Nausea & Vomiting 12/24/19 19:00 01/23/20 18:59 Patient Own Medication (Patient's Own Med) 1 ea DAILY@1500 ORAL 12/27/19 15:00 01/26/20 14:59 12/30/19 15:07 Sodium Chloride 1,000 ml @ 100 mls/hr Q10H IV 12/24/19 19:00 01/23/20 18:59 12/31/19 04:00 Tamsulosin HCl (Flomax) 0.4 mg DAILY ORAL 12/25/19 09:00 01/24/20 08:59 12/31/19 09:41 Tramadol HCl (Ultram) 50 mg Q6H PRN ORAL For Pain 12/24/19 22:30 12/31/19 22:29 Aysha Beal MD December 31, 2019 10:45
--- NOTE | 2019-12-31 11:52 | NUR ---
*-*DISCHARGE PLANNING*-* REFERALS HAVE BEEN FAXED TO THE FOLLOWING FACILITIES -[facility] -[facility] ~~~S/W RAFFI W/ [facility], WHO STATED THEIR SISTER FACILITIES ARE UNABLE TO ACCEPT ANY PATIENTS WHO CAME FROM OTHER LONG-TERM FACILITIES AND THEY ARE NOT COVERED WITH THIS PATIENTS INSURANCE ~~~S/W KAREY, W/ ZEINA GIBBS, WHO STATED ADMISSION IS BUSY AT THIS TIME AND THEY WILL CALL BACK WHEN THEY GET TO THE PATIENTS CLINICAL, PLACED MULITIPLE CALLS, UNABLE TO LEAVE A VOICE MASSAGE.
[2019-12-31 12:00] VITALS: BP 127/67
--- NOTE | 2019-12-31 12:16 | Pulmonology Progress Note ---
Subjective ROS Limited/Unobtainable: Yes Interval Events: None new Constitutional: Reports: no symptoms HEENT: Repors: no symptoms Respiratory: Reports: dry cough, shortness of breath Cardiovascular: Reports: no symptoms Gastrointestinal/Abdominal: Reports: no symptoms Genitourinary: Reports: no symptoms Musculoskeletal: Reports: pain Allergies: Coded Allergies: No Known Allergies (Unverified , 12/24/19) Objective Last 24 Hour Vital Signs Date Time Temp Pulse Resp B/P (MAP) Pulse Ox O2 Delivery O2 Flow Rate FiO2 12/31/19 12:00 97.9 86 19 127/67 (87) 97 12/31/19 09:00 Room Air 12/31/19 08:00 97.4 75 17 115/68 (84) 96 12/31/19 04:00 97.8 85 19 96/64 (75) 98 12/31/19 00:00 98.7 86 18 105/68 (80) 98 12/30/19 22:17 Room Air 12/30/19 20:00 99.8 94 18 106/63 (77) 98 12/30/19 16:00 98.3 80 18 109/66 (80) 98 Intake and Output 12/30/19 12/31/19 19:00 07:00 Intake Total 1200 ml Output Total 900 ml 950 ml Balance 300 ml -950 ml Intake Oral 400 ml IV Total 800 ml Output Urine Total 900 ml 950 ml # Voids 1 # Bowel Movements 1 1 General Appearance: no acute distress HEENT: mucous membranes moist Abdomen: soft, non tender Extremities: no edema Neurologic/Psychiatric: alert, responsive Musculoskeletal: atrophy Current Medications Medications (Trade) Dose Ordered Sig/Val Route PRN Reason Start Time Stop Time Status Last Admin Dose Admin Acetaminophen (Tylenol) 650 mg Q6H PRN ORAL Temp >100.5 12/24/19 22:30 01/23/20 22:29 Albuterol/ Ipratropium (Combivent Respimat) 1 puff Q4HR INH 12/25/19 09:00 01/24/20 08:59 Artificial Tears (Akwa-Tears) 1 drop THREE TIMES A DAY BOTH EYES 12/25/19 09:00 01/24/20 08:59 12/29/19 14:45 Ondansetron HCl (Zofran) 4 mg Q6H PRN IVP Nausea & Vomiting 12/24/19 19:00 01/23/20 18:59 Patient Own Medication (Patient's Own Med) 1 ea DAILY@1500 ORAL 12/27/19 15:00 01/26/20 14:59 12/30/19 15:07 Sodium Chloride 1,000 ml @ 100 mls/hr Q10H IV 12/24/19 19:00 01/23/20 18:59 12/31/19 04:00 Tamsulosin HCl (Flomax) 0.4 mg DAILY ORAL 12/25/19 09:00 01/24/20 08:59 12/31/19 09:41 Tramadol HCl (Ultram) 50 mg Q6H PRN ORAL For Pain 12/24/19 22:30 12/31/19 22:29 Assessment/Plan Assessment/Plan IMPRESSION: 1. Providencia UTI. 2. detention resident. 3. Hypertension. 4. GERD. 5. COVID 19 pneumonia DISCUSSION: Currently, his status is stable. He is on RA I will follow carefully Continue fluids,breathing treatments, abx as well as p.r.n. medications. Ranjan Adam Omar Syed MD December 31, 2019 12:16
--- NOTE | 2019-12-31 13:00 | NUR ---
*-*DISCHARGE PLANNING*-* PATIENT HAS BEEN REFERRED TO: [facility] P: [phone] F: [phone] [facility] P: [phone] F: [phone] [facility] P: [phone] F: [phone] [facility] P: [phone] F: [phone] Addendum: 12/31/19 at 1509 by OZIEL VERDE CM PATIENT HAS BEEN REFERRED TO: [facility] P: [phone] S/W SRI, NOT ACCEPTING ANY PATIENTS FOR THE NEXT 14 DAYS [facility] P: [phone] S/W AURA, NOT ACCEPTING PATIENTS TODAY, POSSIBLY ACCEPTING PATIENTS TOMORROW 01/01/2020 CALL BACK [facility] [place] P: [phone] S/W ENRIQUE, NOT COVERED WITH PATIENTS INSURANCE [facility] P: [phone] S/W [facility], ACCEPTING POST COVID PATIENTS, NO RETIREMENT PATIENTS
--- NOTE | 2019-12-31 13:53 | NUR ---
*-* INSURANCE *-* UPDATED CLINICALS HAVE BEEN FAXED TO: [facility] NCM: SARINA RIVERA P- [phone] F- [phone]...REVIEW/CLINICAL Addendum: 01/01/20 at 1005 by BRAULIO DOUGHERTY CM [facility] NCM: KRUPA MOJICA P:[phone] F: [phone]
--- NOTE | 2019-12-31 14:49 | NUR ---
CASE MANAGEMENT:REVIEW SI;COVID-19 PNEUMONIA (12/24/19) PROVIDENCIA UTI. HIV. 99.5 86 19 96/54 96% ON RA IS; ROCEPHIN IN Q24 HR FLOMAX PO QD COMBIVENT INH Q4 HR IVF NS @ 100 ML/HR MED SURG STATUS DCP;FROM [facility] PATIENT [facility]
--- NOTE | 2019-12-31 15:39 | NUR ---
WELL DRILL OPERATOR ROTARY DRILL NOTE CALL BACK RECEIVED FROM DOMINGO GENTILE NURSE ([phone]) [facility] IS UNABLE TO PROVIDE CONTRACTED SNF LIST TODAY BUT WILL FOLLOW UP WITH THIS CM TOMORROW TO PROVIDE REQUESTED INFORMATION. STATED [facility] IS NOT IN A CERDA TO HAVE COVID POSITIVE PATIENTS DISCHARGED DUE TO HIGH PROBABILITY OF READMISSION RELATED TO COVID-19 COMPLICATIONS.
[2019-12-31] MEDS: GENVOYA ORAL SCH (15:44)
[2019-12-31 16:00] VITALS: BP 118/67
--- NOTE | 2019-12-31 19:02 | NUR ---
HAND-OFF: Report given to Yina.
[2019-12-31 20:00] VITALS: BP 96/57
--- NOTE | 2019-12-31 20:01 | NUR ---
NURSE NOTES: Received patient awake in bed, agitated, no s/s of acute respiratory distress. IV access intact, running IVF maintenance at 100ml/hr. Bed low and locked, 2 side rails up. Needs attended to at this time.
[2020-01-01] VITALS: BP 105/54
--- NOTE | 2020-01-01 00:59 | Progress Note ---
DATE: 12/31/2019 SUBJECTIVE: This is an elderly male, currently comfortable in the bed, in no distress. The patient is tolerating diet. PHYSICAL EXAMINATION: VITAL SIGNS: Stable. CHEST: Bilaterally clear. CARDIOVASCULAR: Regular rhythm. ABDOMEN: Soft. EXTREMITIES: CCE. NEUROLOGICAL: Generalized weakness. ASSESSMENT: 1. COVID positive. 2. Acute bronchitis. 3. Hypertension. 4. Depression. 5. Dementia. 6. HIV. PLAN: We will continue current treatment. Continue isolation. Antibiotic bronchodilator and supportive treatment. Davey Quintana M.D. DR: Primitivo JOB#: [id number] CC:
[2020-01-01 04:00] VITALS: BP 106/70
--- NOTE | 2020-01-01 07:26 | NUR ---
Nurse notes; Report given to TOMY Chaudhry
[2020-01-01 08:00] VITALS: BP 101/66
--- NOTE | 2020-01-01 08:36 | NUR ---
NURSE NOTES: received report from TOMY Franco. patient in bed. A&ox3, verbally responsive. no respiratory distress noted. no pain at this time. F/c for prolonged immobility draining well. no hematuria. yellow. IV on RFA 22 running NS@100. contact and droplet precaution for positive Covid 19. PEE at all times. no fever. no coughing. both arms contracted. bed in the lowest position and locked. call light within reach. will continue to provide plan of care.
[2020-01-01] MEDS: Tamsulosin 0.4mg cap ORAL SCH (09:01)
--- NOTE | 2020-01-01 09:50 | NUR ---
CONTAINER SHOP WELDER NOTE CALL MADE TO [facility] ANUJA GENTILE @ [phone] TO FOLLOW UP ON REQUESTED ASSISTANCE FOR SNF PLACEMENT. STATED SHE WILL CONTINUE TO WORK ON ASSISTANCE AND CALL BACK BY 12 PM TODAY WITH UPDATE.
[2020-01-01 10:19] LABS: HEMATOCRIT 37.1 % (42.0-52.0); HEMOGLOBIN 12.2 G/DL (14.2-18.0); MEAN CORPUSCULAR VOLUME 83 FL (80-99); PLATELET COUNT 552 K/UL (150-450); RED BLOOD COUNT 4.46 M/UL (4.70-6.10); RED CELL DISTRIBUTION WIDTH 11.5 % (11.6-14.8); WHITE BLOOD COUNT 4.9 K/UL (4.8-10.8)
--- NOTE | 2020-01-01 10:25 | Infectious Diseases Prog Note ---
Assessment/Plan Assessment/Plan antibiotics : none A 1. providencia UTI s/p rx 2. COVID 19 pneumonia patient refused hydroxychloroquine on room air, 97 percent O2 saturation 3. dementia 4. HIV P 1. observe off antibiotics 2. will follow up cultures 3. continue isolation Subjective ROS Limited/Unobtainable: Yes Allergies: Coded Allergies: No Known Allergies (Unverified , 12/24/19) Objective Vital Signs Last 24 Hour Vital Signs Date Time Temp Pulse Resp B/P (MAP) Pulse Ox O2 Delivery O2 Flow Rate FiO2 01/01/20 09:00 Room Air 01/01/20 08:00 97.0 90 21 101/66 (78) 97 01/01/20 04:00 98.0 83 18 106/70 (82) 95 01/01/20 00:00 98.0 80 18 105/54 (71) 95 12/31/19 21:48 Room Air 12/31/19 20:00 97.9 82 18 96/57 (70) 95 12/31/19 16:00 97.3 80 18 118/67 (84) 96 12/31/19 12:00 97.9 86 19 127/67 (87) 97 Height (Feet): 5 Height (Inches): 6.00 Weight (Pounds): 104 Laboratory Tests Test 01/01/20 09:30 White Blood Count 4.9 K/UL (4.8-10.8) Red Blood Count 4.46 M/UL (4.70-6.10) L Hemoglobin 12.2 G/DL (14.2-18.0) L Hematocrit 37.1 % (42.0-52.0) L Mean Corpuscular Volume 83 FL (80-99) Mean Corpuscular Hemoglobin 27.3 PG (27.0-31.0) Mean Corpuscular Hemoglobin Concent 32.8 G/DL (32.0-36.0) Red Cell Distribution Width 11.5 % (11.6-14.8) L Platelet Count 552 K/UL (150-450) H Mean Platelet Volume 5.3 FL (6.5-10.1) L Neutrophils (%) (Auto) % (45.0-75.0) Lymphocytes (%) (Auto) % (20.0-45.0) Monocytes (%) (Auto) % (1.0-10.0) Eosinophils (%) (Auto) % (0.0-3.0) Basophils (%) (Auto) % (0.0-2.0) Neutrophils % (Manual) Pending Lymphocytes % (Manual) Pending Platelet Estimate Pending Platelet Morphology Pending Sodium Level Pending Potassium Level Pending Chloride Level Pending Carbon Dioxide Level Pending Blood Urea Nitrogen Pending Creatinine Pending Estimat Glomerular Filtration Rate Pending Glucose Level Pending Calcium Level Pending Total Bilirubin Pending Aspartate Amino Transf (AST/SGOT) Pending Alanine Aminotransferase (ALT/SGPT) Pending Alkaline Phosphatase Pending Total Protein Pending Albumin Pending Globulin Pending Current Medications Medications (Trade) Dose Ordered Sig/Val Route PRN Reason Start Time Stop Time Status Last Admin Dose Admin Acetaminophen (Tylenol) 650 mg Q6H PRN ORAL Temp >100.5 12/24/19 22:30 01/23/20 22:29 Albuterol/ Ipratropium (Combivent Respimat) 1 puff Q4HR INH 12/25/19 09:00 01/24/20 08:59 Artificial Tears (Akwa-Tears) 1 drop THREE TIMES A DAY BOTH EYES 12/25/19 09:00 01/24/20 08:59 12/29/19 14:45 Ondansetron HCl (Zofran) 4 mg Q6H PRN IVP Nausea & Vomiting 12/24/19 19:00 01/23/20 18:59 Patient Own Medication (Patient's Own Med) 1 ea DAILY@1500 ORAL 12/27/19 15:00 01/26/20 14:59 12/31/19 15:44 Sodium Chloride 1,000 ml @ 100 mls/hr Q10H IV 12/24/19 19:00 01/23/20 18:59 01/01/20 04:00 Tamsulosin HCl (Flomax) 0.4 mg DAILY ORAL 12/25/19 09:00 01/24/20 08:59 01/01/20 09:01 Aysha Beal MD January 01, 2020 10:25
[2020-01-01 10:43] LABS: ALANINE AMINOTRANSFERASE 56 U/L (12-78); ALBUMIN 2.8 G/DL (3.4-5.0); ALBUMIN/GLOBULIN RATIO 0.5 (1.0-2.7); ALKALINE PHOSPHATASE 78 U/L (46-116); ANION GAP 5 mmol/L (5-15); ASPARTATE AMINO TRANSFERASE 26 U/L (15-37); BILIRUBIN,TOTAL 0.3 MG/DL (0.2-1.0); BLOOD UREA NITROGEN 12 mg/dL (7-18); CALCIUM 8.8 MG/DL (8.5-10.1); CARBON DIOXIDE 30 MMOL/L (21-32); CHLORIDE 105 MMOL/L (98-107); CREATININE 0.9 MG/DL (0.55-1.30); SODIUM 140 MMOL/L (136-145)
--- NOTE | 2020-01-01 10:48 | Pulmonology Progress Note ---
Subjective ROS Limited/Unobtainable: Yes Interval Events: None new Constitutional: Reports: no symptoms HEENT: Repors: no symptoms Respiratory: Reports: dry cough, shortness of breath Cardiovascular: Reports: no symptoms Gastrointestinal/Abdominal: Reports: no symptoms Genitourinary: Reports: no symptoms Musculoskeletal: Reports: pain Allergies: Coded Allergies: No Known Allergies (Unverified , 12/24/19) Objective Last 24 Hour Vital Signs Date Time Temp Pulse Resp B/P (MAP) Pulse Ox O2 Delivery O2 Flow Rate FiO2 01/01/20 09:00 Room Air 01/01/20 08:00 97.0 90 21 101/66 (78) 97 01/01/20 04:00 98.0 83 18 106/70 (82) 95 01/01/20 00:00 98.0 80 18 105/54 (71) 95 12/31/19 21:48 Room Air 12/31/19 20:00 97.9 82 18 96/57 (70) 95 12/31/19 16:00 97.3 80 18 118/67 (84) 96 12/31/19 12:00 97.9 86 19 127/67 (87) 97 Intake and Output 12/31/19 01/01/20 19:00 07:00 Intake Total 2100 ml 300 ml Output Total 1400 ml 500 ml Balance 700 ml -200 ml Intake Oral 450 ml IV Total 1000 ml 300 ml Other 650 ml Output Urine Total 1400 ml 500 ml # Voids 1 # Bowel Movements 1 1 General Appearance: no acute distress HEENT: mucous membranes moist Abdomen: soft, non tender Extremities: no edema Neurologic/Psychiatric: alert, responsive Musculoskeletal: atrophy Laboratory Tests 01/01/20 09:30: White Blood Count 4.9, Red Blood Count 4.46L, Hemoglobin 12.2L, Hematocrit 37.1L , Mean Corpuscular Volume 83, Mean Corpuscular Hemoglobin 27.3, Mean Corpuscular Hemoglobin Concent 32.8, Red Cell Distribution Width 11.5L, Platelet Count 552H, Mean Platelet Volume 5.3L, Neutrophils (%) (Auto) , Lymphocytes (%) (Auto) , Monocytes (%) (Auto) , Eosinophils (%) (Auto) , Basophils (%) (Auto) , Neutrophils % (Manual) [Pending], Lymphocytes % (Manual) [Pending], Platelet Estimate [Pending], Platelet Morphology [Pending], Sodium Level 140, Potassium Level 4.0, Chloride Level 105, Carbon Dioxide Level 30, Anion Gap 5, Blood Urea Nitrogen 12, Creatinine 0.9, Estimat Glomerular Filtration Rate > 60, Glucose Level 113H, Calcium Level 8.8, Total Bilirubin 0.3 , Aspartate Amino Transf (AST/SGOT) 26, Alanine Aminotransferase (ALT/SGPT) 56, Alkaline Phosphatase 78, Total Protein 8.2, Albumin 2.8L, Globulin 5.4, Albumin/ Globulin Ratio 0.5L Current Medications Medications (Trade) Dose Ordered Sig/Val Route PRN Reason Start Time Stop Time Status Last Admin Dose Admin Acetaminophen (Tylenol) 650 mg Q6H PRN ORAL Temp >100.5 12/24/19 22:30 01/23/20 22:29 Albuterol/ Ipratropium (Combivent Respimat) 1 puff Q4HR INH 12/25/19 09:00 01/24/20 08:59 Artificial Tears (Akwa-Tears) 1 drop THREE TIMES A DAY BOTH EYES 12/25/19 09:00 01/24/20 08:59 12/29/19 14:45 Ondansetron HCl (Zofran) 4 mg Q6H PRN IVP Nausea & Vomiting 12/24/19 19:00 01/23/20 18:59 Patient Own Medication (Patient's Own Med) 1 ea DAILY@1500 ORAL 12/27/19 15:00 01/26/20 14:59 12/31/19 15:44 Sodium Chloride 1,000 ml @ 100 mls/hr Q10H IV 12/24/19 19:00 01/23/20 18:59 01/01/20 04:00 Tamsulosin HCl (Flomax) 0.4 mg DAILY ORAL 12/25/19 09:00 01/24/20 08:59 01/01/20 09:01 Assessment/Plan Assessment/Plan IMPRESSION: 1. Providencia UTI. 2. [facility] resident. 3. Hypertension. 4. GERD. 5. COVID 19 pneumonia DISCUSSION: Currently, his status is stable. He is on RA I will follow carefully Continue fluids,breathing treatments, abx as well as p.r.n. medications. Ranjan Adam Omar Syed MD January 01, 2020 10:47
[2020-01-01 12:00] VITALS: BP 92/60
--- NOTE | 2020-01-01 12:11 | NUR ---
*-* INSURANCE *-* UPDATED CLINICALS HAVE BEEN FAXED TO: [facility] ANUJA: KRUPA MOJICA P:[phone] F: [phone]
--- NOTE | 2020-01-01 12:44 | NUR ---
NURSE NOTES: patient refused eye drop and comvivent INH, artificial tears. Patient said he just did not need that medications. explained risks and benefits.
--- NOTE | 2020-01-01 13:45 | NUR ---
BATHHOUSE ATTENDANT NOTES SPOKE WITH KRUPA FROM [facility], PER KRUPA PT IS [facility] LEVEL OF CARE AND NEEDS TO BE PLACED WITH HIS MEDICAL. DCP ONGOING. KRUPA [phone]
[2020-01-01] MEDS: GENVOYA ORAL SCH (15:12)
--- NOTE | 2020-01-01 15:25 | NUR ---
*-* DISCHARGE PLANNING *-* PATIENT HAS BEEN REFERRED TO: [facility] P: [phone] F: [phone] EFAX:[phone]
--- NOTE | 2020-01-01 15:28 | NUR ---
CASE MANAGEMENT:REVIEW SI;COVID-19 PNEUMONIA (12/24/19) PROVIDENCIA UTI. HIV. 98.0 90 21 92/60 95% ON RA ALB 2.8 IS; FLOMAX PO QD COMBIVENT INH Q4 HR IVF NS @ 100 ML/HR MED SURG STATUS DCP; PATIENT IS FROM [facility]; SNF PLACEMENT. HOME SNF UNABLE ACCEPT COVID POSITIVE PATIENT AT THIS TIME ACTIVELY SEEKING ALTERNATE SNF
--- NOTE | 2020-01-01 15:38 | NUR ---
*-* DISCHARGE PLANNING *-* PATIENT HAS BEEN REFERRED TO: [facility] P: [phone] F; [phone] EFAX: [phone] EMAIL: [email or web address] Addendum: 01/02/20 at 1156 by BRAULIO DOUGHERTY CM *-* S/W SANDRA AT [facility] THEY ARE NO LONGER ACCPETING ANY NEW PATIENT ONLY THEIR OWN *-*
[2020-01-01 16:00] VITALS: BP 109/68
--- NOTE | 2020-01-01 17:06 | NUR ---
NURSE NOTES: patient refused artificial eye drop and comvivent INH. explained risks and benefits. patient said that medication did not help.
--- NOTE | 2020-01-01 19:14 | NUR ---
HAND-OFF: Report given to Joan Bran RN.
[2020-01-01 20:00] VITALS: BP 131/49
--- NOTE | 2020-01-01 20:00 | NUR ---
NURSE NOTES: Received patient awake in bed, agitated, no s/s of acute respiratory distress. IV access intact, running IVF maintenance at 100ml/hr. Bed low and locked, 2 side rails up, pulled up in bed. Needs attended to at this time.
--- NOTE | 2020-01-01 22:14 | Progress Note ---
DATE: 01/01/2020 SUBJECTIVE: He is physically doing better. The patient has no fever. PHYSICAL EXAMINATION: VITAL SIGNS: Blood pressure 92/60 asymptomatic, pulse 83, respirations 19, temperature 98.6. HEENT: NAD. CHEST: Bilateral decreased breath sounds. CARDIOVASCULAR: Regular rhythm. No gallop. No murmur. ABDOMEN: Soft. EXTREMITIES: CCE. NEUROLOGIC: The patient is in no focal deficit. LABORATORY DATA: White count 4.9, hemoglobin 12, hematocrit 37, platelets are 552. Chemistry panel, sodium 140, potassium 4, BUN 12, creatinine 0.9, glucose 113. ASSESSMENT: 1. COVID-19 positive. 2. Fever, rule out sepsis. 3. Human immunodeficiency virus. 4. Dementia. 5. Depression. PLAN: We will continue current treatment. Continue Flomax, bronchodilator treatments, isolation, Zofran. Davey Quintana M.D. DR: JARETH JOB#: [id number] CC:
[2020-01-02] VITALS: BP 135/55
[2020-01-02 04:00] VITALS: BP 95/61
--- NOTE | 2020-01-02 07:14 | NUR ---
HAND-OFF: Report given to TOMY Chaudhry.
--- NOTE | 2020-01-02 07:48 | NUR ---
NURSE NOTES: received report from TOMY Franco. patient in bed. sleeping. no respiratory distress noted. no facial grimacing. IV on left upper arm running NS@100/hr. IV site intact. patent. F/C draining. yellow. no sediment noted. bed in the lowest position and locked. call light within reach. will continue to provide plan of care.
[2020-01-02 08:00] VITALS: BP 91/60
[2020-01-02] MEDS: Tamsulosin 0.4mg cap ORAL SCH (08:32)
--- NOTE | 2020-01-02 09:00 | NUR ---
NURSE NOTES: patient refused taking artificial tear eye drop and comvivent INH. he said he does not need those medications. explained risks and benefits. will continue to monitor patient condition.
--- NOTE | 2020-01-02 10:41 | Pulmonology Progress Note ---
Subjective ROS Limited/Unobtainable: Yes Interval Events: None new Constitutional: Reports: no symptoms HEENT: Repors: no symptoms Respiratory: Reports: dry cough, shortness of breath Cardiovascular: Reports: no symptoms Gastrointestinal/Abdominal: Reports: no symptoms Genitourinary: Reports: no symptoms Musculoskeletal: Reports: pain Allergies: Coded Allergies: No Known Allergies (Unverified , 12/24/19) Objective Last 24 Hour Vital Signs Date Time Temp Pulse Resp B/P (MAP) Pulse Ox O2 Delivery O2 Flow Rate FiO2 01/02/20 09:00 Room Air 01/02/20 08:00 98.0 78 20 91/60 (70) 98 01/02/20 04:00 97.3 76 19 95/61 (72) 98 01/02/20 00:00 97.7 86 19 135/55 (81) 98 01/01/20 22:21 Room Air 01/01/20 20:00 98.0 70 21 131/49 (76) 98 01/01/20 16:00 97.5 93 21 109/68 (82) 98 01/01/20 12:00 98.6 83 19 92/60 (71) 95 Intake and Output 01/01/20 01/02/20 19:00 07:00 Intake Total 1280 ml Output Total 600 ml 600 ml Balance 680 ml -600 ml Intake Oral 480 ml IV Total 800 ml Output Urine Total 600 ml 600 ml General Appearance: no acute distress HEENT: mucous membranes moist Abdomen: soft, non tender Extremities: no edema Neurologic/Psychiatric: alert, responsive Musculoskeletal: atrophy Current Medications Medications (Trade) Dose Ordered Sig/Val Route PRN Reason Start Time Stop Time Status Last Admin Dose Admin Acetaminophen (Tylenol) 650 mg Q6H PRN ORAL Temp >100.5 12/24/19 22:30 01/23/20 22:29 Albuterol/ Ipratropium (Combivent Respimat) 1 puff Q4HR INH 12/25/19 09:00 01/24/20 08:59 Artificial Tears (Akwa-Tears) 1 drop THREE TIMES A DAY BOTH EYES 12/25/19 09:00 01/24/20 08:59 12/29/19 14:45 Ondansetron HCl (Zofran) 4 mg Q6H PRN IVP Nausea & Vomiting 12/24/19 19:00 01/23/20 18:59 Patient Own Medication (Patient's Own Med) 1 ea DAILY@1500 ORAL 12/27/19 15:00 01/26/20 14:59 01/01/20 15:12 Sodium Chloride 1,000 ml @ 100 mls/hr Q10H IV 12/24/19 19:00 01/23/20 18:59 01/02/20 03:00 Tamsulosin HCl (Flomax) 0.4 mg DAILY ORAL 12/25/19 09:00 01/24/20 08:59 01/02/20 08:32 Assessment/Plan Assessment/Plan IMPRESSION: 1. Providencia UTI. 2. senior living resident. 3. Hypertension. 4. GERD. 5. COVID 19 pneumonia DISCUSSION: Currently, his status is stable. He is on RA I will follow carefully Continue fluids,breathing treatments, abx as well as p.r.n. medications. OK to dc Ranjan Adam Omar Syed MD January 02, 2020 10:41
[2020-01-02 12:00] VITALS: BP 96/58
--- NOTE | 2020-01-02 12:23 | Infectious Diseases Prog Note ---
Assessment/Plan Assessment/Plan A; 1. Providencia urinary tract infection treated 2. COVID-19 pneumonia 3. Dementia. 4. Depression. 5. Lymphocytosis 6. elevated transaminase &. HIV PLAN: 1. Continue isolation. 2. Continue HAART Subjective ROS Limited/Unobtainable: Yes Constitutional: Denies: fever Allergies: Coded Allergies: No Known Allergies (Unverified , 12/24/19) Objective Vital Signs Last 24 Hour Vital Signs Date Time Temp Pulse Resp B/P (MAP) Pulse Ox O2 Delivery O2 Flow Rate FiO2 01/02/20 09:00 Room Air 01/02/20 08:00 98.0 78 20 91/60 (70) 98 01/02/20 04:00 97.3 76 19 95/61 (72) 98 01/02/20 00:00 97.7 86 19 135/55 (81) 98 01/01/20 22:21 Room Air 01/01/20 20:00 98.0 70 21 131/49 (76) 98 01/01/20 16:00 97.5 93 21 109/68 (82) 98 Height (Feet): 5 Height (Inches): 6.00 Weight (Pounds): 104 General Appearance: no acute distress HEENT: mucous membranes moist Respiratory/Chest: lungs clear Cardiovascular: normal rate Abdomen: soft, non tender Extremities: no edema Neurologic/Psychiatric: other - sleeping Current Medications Medications (Trade) Dose Ordered Sig/Val Route PRN Reason Start Time Stop Time Status Last Admin Dose Admin Acetaminophen (Tylenol) 650 mg Q6H PRN ORAL Temp >100.5 12/24/19 22:30 01/23/20 22:29 Albuterol/ Ipratropium (Combivent Respimat) 1 puff Q4HR INH 12/25/19 09:00 01/24/20 08:59 Artificial Tears (Akwa-Tears) 1 drop THREE TIMES A DAY BOTH EYES 12/25/19 09:00 01/24/20 08:59 12/29/19 14:45 Ondansetron HCl (Zofran) 4 mg Q6H PRN IVP Nausea & Vomiting 12/24/19 19:00 01/23/20 18:59 Patient Own Medication (Patient's Own Med) 1 ea DAILY@1500 ORAL 12/27/19 15:00 01/26/20 14:59 01/01/20 15:12 Sodium Chloride 1,000 ml @ 100 mls/hr Q10H IV 12/24/19 19:00 01/23/20 18:59 01/02/20 03:00 Tamsulosin HCl (Flomax) 0.4 mg DAILY ORAL 12/25/19 09:00 01/24/20 08:59 01/02/20 08:32 Baron Angulo MD January 02, 2020 12:23
[2020-01-02] MEDS: GENVOYA ORAL SCH (15:22)
[2020-01-02 16:00] VITALS: BP 100/61
--- NOTE | 2020-01-02 16:34 | NUR ---
*-* INSURANCE *-* UPDATED CLINICALS HAVE BEEN FAXED TO: [facility] ANUJA: KRUPA MOJICA P:[phone] F: [phone]
--- NOTE | 2020-01-02 16:37 | NUR ---
*-* INSURANCE *-* UPDATED CLINICALS HAVE BEEN FAXED TO: [facility] NCM: SARINA RIVERA P- [phone] F- [phone]...REVIEW/CLINICAL Addendum: 01/01/20 at 1005 by BRAULIO DOUGHERTY CM [facility] NCM: KRUPA MOJICA P:[phone] F: [phone]
--- NOTE | 2020-01-02 17:33 | NUR ---
NURSE NOTES: patient refused taking comvivent INH and artificial tear eye drop. explained risks and benefits.
--- NOTE | 2020-01-02 19:14 | NUR ---
HAND-OFF: Report given to TOMY Gonzalez.
--- NOTE | 2020-01-02 19:30 | NUR ---
NURSE NOTES: RECEIVED PATIENT FROM TOMY ZARATE. PATIENT IS AWAKE, AAOX3, ON ROOM AIR, NO ACUTE DISTRESS NOTED. HILL IN PLACE, PATENT, DRAINING WELL, YELLOW URINE NOTED. HILL ANCHOR PRESENT. IV ON LEFT UPPER ARM INTACT AND PATENT. ISOLATION FOR COVID +. BED IS LOCKED AND LOW, BED ALARMS ACTIVE, SIDE RAILS UPX2, AND CALL LIGHT IS WITHIN REACH. WILL CONTINUE TO MONITOR.
[2020-01-02 20:00] VITALS: BP 112/72
--- NOTE | 2020-01-02 20:59 | Progress Note ---
DATE: 01/02/2020 SUBJECTIVE: This is an elderly male, currently doing better. Fever is subsided. PHYSICAL EXAMINATION: VITAL SIGNS: Blood pressure 96/58, pulse 73, respirations 20. No fever. CHEST: Bilateral few crackles. CARDIOVASCULAR: Regular rhythm. ABDOMEN: Soft. EXTREMITIES: CCE. ASSESSMENT: 1. COVID pneumonia. 2. HIV. 3. Dementia and depression. PLAN: 1. Continue current treatment. 2. Continue in isolation. Davey Quintana M.D. DR: ALYSSA JOB#: [id number] CC:
[2020-01-03] VITALS: BP 101/70
[2020-01-03 04:00] VITALS: BP 98/72
--- NOTE | 2020-01-03 07:22 | NUR ---
HAND-OFF: Report given to TOMY Lazcano.
--- NOTE | 2020-01-03 07:25 | NUR ---
NURSE NOTES: Received patient in bed. Awake, A/O x3. On room air. Patient denies pain at this time. IV in the Left upper arm, site intact, infusing IVF well. Bed low and locked, call light within reach.
[2020-01-03 08:00] VITALS: BP 118/79
[2020-01-03] MEDS: Tamsulosin 0.4mg cap ORAL SCH (08:03)
--- NOTE | 2020-01-03 10:05 | NUR ---
*-* INSURANCE *-* UPDATED CLINICALS HAVE BEEN FAXED TO: [facility] NCM: SARINA MIGUEL P- [phone] NCM: KRUPA GALINA P:[phone] F- [phone]...REVIEW/CLINICAL Addendum: 01/01/20 at 1005 by BRAULIO DOUGHERTY [facility] F: [phone]
--- NOTE | 2020-01-03 11:21 | Infectious Diseases Prog Note ---
Assessment/Plan Assessment/Plan antibiotics : none A 1. providencia UTI s/p rx 2. COVID 19 pneumonia patient refused hydroxychloroquine on room air, 98 percent O2 saturation 3. dementia 4. HIV P 1. observe off antibiotics 2. will follow up cultures 3. continue isolation Subjective ROS Limited/Unobtainable: Yes Allergies: Coded Allergies: No Known Allergies (Unverified , 12/24/19) Objective Vital Signs Last 24 Hour Vital Signs Date Time Temp Pulse Resp B/P (MAP) Pulse Ox O2 Delivery O2 Flow Rate FiO2 01/03/20 09:00 Room Air 01/03/20 08:00 97.9 82 18 118/79 (92) 98 01/03/20 04:00 97.8 98 22 98/72 (81) 97 01/03/20 00:00 97.9 83 20 101/70 (80) 98 01/02/20 21:00 Room Air 01/02/20 20:00 97.7 77 18 112/72 (85) 97 01/02/20 16:00 98.4 78 19 100/61 (74) 97 01/02/20 12:00 98.4 73 20 96/58 (71) 97 Height (Feet): 5 Height (Inches): 6.00 Weight (Pounds): 104 Microbiology Date/Time Source Procedure Growth Status 01/01/20 12:40 Nasopharynx Coronavirus COVID-19 PCR (JAMES) - Final Complete Current Medications Medications (Trade) Dose Ordered Sig/Val Route PRN Reason Start Time Stop Time Status Last Admin Dose Admin Acetaminophen (Tylenol) 650 mg Q6H PRN ORAL Temp >100.5 12/24/19 22:30 01/23/20 22:29 Albuterol/ Ipratropium (Combivent Respimat) 1 puff Q4HR INH 12/25/19 09:00 01/24/20 08:59 01/03/20 08:20 Artificial Tears (Akwa-Tears) 1 drop THREE TIMES A DAY BOTH EYES 12/25/19 09:00 01/24/20 08:59 01/03/20 08:19 Ondansetron HCl (Zofran) 4 mg Q6H PRN IVP Nausea & Vomiting 12/24/19 19:00 01/23/20 18:59 Patient Own Medication (Patient's Own Med) 1 ea DAILY@1500 ORAL 12/27/19 15:00 01/26/20 14:59 01/02/20 15:22 Sodium Chloride 1,000 ml @ 100 mls/hr Q10H IV 12/24/19 19:00 01/23/20 18:59 01/03/20 08:03 Tamsulosin HCl (Flomax) 0.4 mg DAILY ORAL 12/25/19 09:00 01/24/20 08:59 01/03/20 08:03 Aysha Beal MD January 03, 2020 11:21
--- NOTE | 2020-01-03 11:43 | Pulmonology Progress Note ---
Subjective ROS Limited/Unobtainable: Yes Interval Events: None new Constitutional: Denies: fever HEENT: Repors: no symptoms Respiratory: Reports: dry cough, shortness of breath Cardiovascular: Reports: no symptoms Gastrointestinal/Abdominal: Reports: no symptoms Genitourinary: Reports: no symptoms Musculoskeletal: Reports: pain Allergies: Coded Allergies: No Known Allergies (Unverified , 12/24/19) Objective Last 24 Hour Vital Signs Date Time Temp Pulse Resp B/P (MAP) Pulse Ox O2 Delivery O2 Flow Rate FiO2 01/03/20 09:00 Room Air 01/03/20 08:00 97.9 82 18 118/79 (92) 98 01/03/20 04:00 97.8 98 22 98/72 (81) 97 01/03/20 00:00 97.9 83 20 101/70 (80) 98 01/02/20 21:00 Room Air 01/02/20 20:00 97.7 77 18 112/72 (85) 97 01/02/20 16:00 98.4 78 19 100/61 (74) 97 01/02/20 12:00 98.4 73 20 96/58 (71) 97 Intake and Output 01/02/20 01/03/20 18:59 06:59 Intake Total 1240 ml 1000 ml Output Total 800 ml 1000 ml Balance 440 ml 0 ml Intake Oral 640 ml IV Total 600 ml 1000 ml Output Urine Total 800 ml 1000 ml # Bowel Movements 1 General Appearance: no acute distress HEENT: mucous membranes moist Abdomen: soft, non tender Extremities: no edema Neurologic/Psychiatric: other - sleeping Musculoskeletal: atrophy Microbiology Date/Time Source Procedure Growth Status 01/01/20 12:40 Nasopharynx Coronavirus COVID-19 PCR (JAMES) - Final Complete Current Medications Medications (Trade) Dose Ordered Sig/Val Route PRN Reason Start Time Stop Time Status Last Admin Dose Admin Acetaminophen (Tylenol) 650 mg Q6H PRN ORAL Temp >100.5 12/24/19 22:30 01/23/20 22:29 Albuterol/ Ipratropium (Combivent Respimat) 1 puff Q4HR INH 12/25/19 09:00 01/24/20 08:59 01/03/20 08:20 Artificial Tears (Akwa-Tears) 1 drop THREE TIMES A DAY BOTH EYES 12/25/19 09:00 01/24/20 08:59 01/03/20 08:19 Ondansetron HCl (Zofran) 4 mg Q6H PRN IVP Nausea & Vomiting 12/24/19 19:00 01/23/20 18:59 Patient Own Medication (Patient's Own Med) 1 ea DAILY@1500 ORAL 12/27/19 15:00 01/26/20 14:59 01/02/20 15:22 Sodium Chloride 1,000 ml @ 100 mls/hr Q10H IV 12/24/19 19:00 01/23/20 18:59 01/03/20 08:03 Tamsulosin HCl (Flomax) 0.4 mg DAILY ORAL 12/25/19 09:00 01/24/20 08:59 01/03/20 08:03 Assessment/Plan Assessment/Plan IMPRESSION: 1. Providencia UTI. 2. assisted resident. 3. Hypertension. 4. GERD. 5. COVID 19 pneumonia DISCUSSION: Currently, his status is stable. He is on RA I will follow carefully Continue fluids,breathing treatments, abx as well as p.r.n. medications. OK to dc Ranjan Adam Omar Syed MD January 03, 2020 11:43
[2020-01-03 12:00] VITALS: BP 110/67
--- NOTE | 2020-01-03 14:03 | NUR ---
CASE MANAGEMENT: REVIEW 01/03/2020 SI;Providencia UTI. VS: T 98.1 HR 79 RR 20 B/P 110/67 SATS 98% ON RA LABS: NONE TODAY IS:NS @ 100 ML/HR FLOMAX PO QD MED/SURG PLAN OF CARE: patient refused hydroxychloroquine observe off antibiotics
[2020-01-03] MEDS: GENVOYA ORAL SCH (14:48)
--- NOTE | 2020-01-03 14:58 | NUR ---
DISCHARGE PLANNING: NOTE PER MD NOTE PATIENT IS OK TO DC PATIENT IS COVID (+) AND REFUSING TREATMENT CALL PLACED TO [facility] POSSIBLE ACCEPTANCE OVER THE WEEKEND IF CLEARANCE PROVIDED BY [facility] FAXED TO [phone] AWAITING FAX CONFIRMATION Addendum: 01/03/20 at 1715 by Angi Wiley CM transfer form to left in chart for possible weekend discharge number to nurses station provided to snf
[2020-01-03 16:00] VITALS: BP 133/63
--- NOTE | 2020-01-03 19:25 | NUR ---
NURSE NOTES: Received patient on bed, awake and verbally responsive. room air. no sob. with monteiro catheter draining well. iv line on the right upper arm running ns at 100 ml/hr. attended to needs, provided rest and comfort. reiterated to call or ask for assistance. call light and light button within easy reach. bed locked and in lowest position. will continue plan of care.
--- NOTE | 2020-01-03 19:49 | NUR ---
HAND-OFF: Report given to Minerva HUITRON.
[2020-01-03 20:00] VITALS: BP 100/64
--- NOTE | 2020-01-03 23:29 | Progress Note ---
DATE: 01/03/2020 SUBJECTIVE: This is an elderly male, currently comfortable, doing fine. PHYSICAL EXAMINATION: VITAL SIGNS: Blood pressure is 110/70, pulse 78, respirations 18, no fever. HEENT: NAD. CHEST: Bilaterally clear. CARDIOVASCULAR: Regular rhythm. ABDOMEN: Soft. EXTREMITIES: CCE. ASSESSMENT: 1. COVID pneumonia. 2. COPD. 3. Dementia. 4. HIV. PLAN: 1. Continue current treatment. 2. Continue isolation. Davey Quintana M.D. DR: Primitivo JOB#: [id number] CC:
[2020-01-04] VITALS (7 sets, daily range): BP systolic 110–136; BP diastolic 64–84
--- NOTE | 2020-01-04 07:25 | NUR ---
NURSE NOTES: Received report from Marleny Palma RN. Patient awake in bed. On room air, no signs of distress or labored breathing. IV intact, patent, and infusing IV fluids. Bed in lowest position. Will continue with plan of care.
[2020-01-04] MEDS: Tamsulosin 0.4mg cap ORAL SCH (09:45)
--- NOTE | 2020-01-04 11:20 | Infectious Diseases Prog Note ---
Assessment/Plan Assessment/Plan antibiotics : none A 1. providencia UTI s/p rx 2. COVID 19 pneumonia patient refused hydroxychloroquine on room air, 98 percent O2 saturation 3. dementia 4. HIV P 1. observe off antibiotics 2. will follow up cultures 3. continue isolation Subjective Constitutional: Denies: fever, chills Respiratory: Denies: shortness of breath, dry cough Gastrointestinal/Abdominal: Denies: nausea, vomiting, diarrhea Musculoskeletal: Denies: pain Allergies: Coded Allergies: No Known Allergies (Unverified , 12/24/19) Objective Vital Signs Last 24 Hour Vital Signs Date Time Temp Pulse Resp B/P (MAP) Pulse Ox O2 Delivery O2 Flow Rate FiO2 01/04/20 08:00 97.9 79 20 110/74 (86) 97 01/04/20 04:00 97.6 98 20 132/84 (100) 96 01/04/20 00:00 97.8 91 20 124/80 (95) 95 01/03/20 21:00 Room Air 01/03/20 20:00 98.2 89 20 100/64 (76) 96 01/03/20 16:00 98.1 78 20 133/63 (86) 97 01/03/20 12:00 98.1 79 20 110/67 (81) 98 Height (Feet): 5 Height (Inches): 6.00 Weight (Pounds): 104 Microbiology Date/Time Source Procedure Growth Status 01/01/20 12:40 Nasopharynx Coronavirus COVID-19 PCR (JAMES) - Final Complete Current Medications Medications (Trade) Dose Ordered Sig/Val Route PRN Reason Start Time Stop Time Status Last Admin Dose Admin Acetaminophen (Tylenol) 650 mg Q6H PRN ORAL Temp >100.5 12/24/19 22:30 01/23/20 22:29 Albuterol/ Ipratropium (Combivent Respimat) 1 puff Q4HR INH 12/25/19 09:00 01/24/20 08:59 01/03/20 17:00 Artificial Tears (Akwa-Tears) 1 drop THREE TIMES A DAY BOTH EYES 12/25/19 09:00 01/24/20 08:59 01/03/20 18:00 Ondansetron HCl (Zofran) 4 mg Q6H PRN IVP Nausea & Vomiting 12/24/19 19:00 01/23/20 18:59 Patient Own Medication (Patient's Own Med) 1 ea DAILY@1700 ORAL 01/04/20 17:00 02/03/20 16:59 Sodium Chloride 1,000 ml @ 100 mls/hr Q10H IV 12/24/19 19:00 01/23/20 18:59 01/04/20 04:29 Tamsulosin HCl (Flomax) 0.4 mg DAILY ORAL 12/25/19 09:00 01/24/20 08:59 01/04/20 09:45 Aysha Beal MD January 04, 2020 11:20
--- NOTE | 2020-01-04 12:15 | Pulmonology Progress Note ---
Subjective ROS Limited/Unobtainable: Yes Interval Events: None new Constitutional: Denies: fever, chills HEENT: Repors: no symptoms Respiratory: Reports: dry cough, shortness of breath Cardiovascular: Reports: no symptoms Gastrointestinal/Abdominal: Denies: nausea, vomiting, diarrhea Genitourinary: Reports: no symptoms Musculoskeletal: Denies: pain Allergies: Coded Allergies: No Known Allergies (Unverified , 12/24/19) Objective Last 24 Hour Vital Signs Date Time Temp Pulse Resp B/P (MAP) Pulse Ox O2 Delivery O2 Flow Rate FiO2 01/04/20 12:00 97.9 96 20 113/72 (86) 97 01/04/20 09:00 Room Air 01/04/20 08:00 97.9 79 20 110/74 (86) 97 01/04/20 04:00 97.6 98 20 132/84 (100) 96 01/04/20 00:00 97.8 91 20 124/80 (95) 95 01/03/20 21:00 Room Air 01/03/20 20:00 98.2 89 20 100/64 (76) 96 01/03/20 16:00 98.1 78 20 133/63 (86) 97 Intake and Output 01/03/20 01/04/20 19:00 07:00 Intake Total 800 ml 1450 ml Output Total 1000 ml 1050 ml Balance -200 ml 400 ml Intake Oral 600 ml 350 ml IV Total 200 ml 1100 ml Output Urine Total 1000 ml 1050 ml # Voids 2 # Bowel Movements 1 1 General Appearance: no acute distress HEENT: normocephalic Respiratory: chest wall non-tender, lungs clear Cardiovascular: normal peripheral pulses Abdomen: normal bowel sounds Microbiology Date/Time Source Procedure Growth Status 01/01/20 12:40 Nasopharynx Coronavirus COVID-19 PCR (JAMES) - Final Complete Current Medications Medications (Trade) Dose Ordered Sig/Val Route PRN Reason Start Time Stop Time Status Last Admin Dose Admin Acetaminophen (Tylenol) 650 mg Q6H PRN ORAL Temp >100.5 12/24/19 22:30 01/23/20 22:29 Albuterol/ Ipratropium (Combivent Respimat) 1 puff Q4HR INH 12/25/19 09:00 01/24/20 08:59 01/03/20 17:00 Artificial Tears (Akwa-Tears) 1 drop THREE TIMES A DAY BOTH EYES 12/25/19 09:00 01/24/20 08:59 01/03/20 18:00 Ondansetron HCl (Zofran) 4 mg Q6H PRN IVP Nausea & Vomiting 12/24/19 19:00 01/23/20 18:59 Patient Own Medication (Patient's Own Med) 1 ea DAILY@1700 ORAL 01/04/20 17:00 02/03/20 16:59 Sodium Chloride 1,000 ml @ 100 mls/hr Q10H IV 12/24/19 19:00 01/23/20 18:59 01/04/20 04:29 Tamsulosin HCl (Flomax) 0.4 mg DAILY ORAL 12/25/19 09:00 01/24/20 08:59 01/04/20 09:45 Assessment/Plan Assessment/Plan IMPRESSION: 1. Providencia UTI. 2. [facility] resident. 3. Hypertension. 4. GERD. 5. COVID 19 pneumonia DISCUSSION: Currently, his status is stable. He is on RA I will follow carefully Continue fluids,breathing treatments, abx as well as p.r.n. medications. OK to dc Ranjan Adam Omar Syed MD January 04, 2020 12:15
[2020-01-04] MEDS: GENVOYA ORAL SCH (17:27)
--- NOTE | 2020-01-04 19:38 | NUR ---
HAND-OFF: Report given to TOMY Chávez. Rounds done.
--- NOTE | 2020-01-04 20:00 | NUR ---
NURSE NOTES: Patient received in bed, asleep, no acute distress in room air. FC draining via gravity. IV is intact and patent, C/o muscle aches, offered tylenol but patient refused. Repositioned for comfort. Will continue plan of care.
--- NOTE | 2020-01-05 00:15 | Progress Note ---
DATE: 01/04/2020 SUBJECTIVE: This is a 59-year-old male came to the emergency room for having shortness of breath, hypoxia, and fever and COVID-19 positive. The patient is currently doing better. Fever is subsided. His shortness of breath is improving. PHYSICAL EXAMINATION: VITAL SIGNS: Stable. CHEST: Bilateral decreased breath sounds. CARDIOVASCULAR: Regular rhythm. No gallop. No murmur. ABDOMEN: Soft. Positive bowel sounds. Nontender. EXTREMITIES: CCE. NEUROLOGICAL: Generalized weakness. ASSESSMENT: 1. COVID-19 pneumonia. 2. HIV. 3. Depression. 4. Dementia. PLAN: 1. We will currently continue antibiotic. 2. Continue bronchodilator treatments. 3. Continue in isolation. Davey Quintana M.D. DR: ALYSSA JOB#: [id number] CC:
[2020-01-05 04:00] VITALS: BP 104/66
--- NOTE | 2020-01-05 07:15 | NUR ---
HAND-OFF: Report given to Ana M HUITRON.
--- NOTE | 2020-01-05 07:18 | NUR ---
NURSE NOTES: Received report from TOMY Chávez. Patient sleeping. On room air, no signs of distress or labored breathing. IV intact, patent and infusing IV fluids. Bed in lowest position with call light in reach. Will continue with plan of care.
--- NOTE | 2020-01-05 07:21 | NUR ---
HAND-OFF: Report given to TOMY Chávez. Addendum: 01/05/20 at 1922 by Ana M Gamez RN WRONG TIME
[2020-01-05 08:00] VITALS: BP 102/59
--- NOTE | 2020-01-05 08:51 | Pulmonology Progress Note ---
Subjective ROS Limited/Unobtainable: Yes Interval Events: None new Constitutional: Denies: fever, chills HEENT: Repors: no symptoms Respiratory: Reports: dry cough, shortness of breath Cardiovascular: Reports: no symptoms Gastrointestinal/Abdominal: Denies: nausea, vomiting, diarrhea Genitourinary: Reports: no symptoms Musculoskeletal: Denies: pain Allergies: Coded Allergies: No Known Allergies (Unverified , 12/24/19) Objective Last 24 Hour Vital Signs Date Time Temp Pulse Resp B/P (MAP) Pulse Ox O2 Delivery O2 Flow Rate FiO2 01/05/20 08:00 97.0 94 18 102/59 (73) 96 01/05/20 04:00 98.0 82 19 104/66 (79) 95 01/04/20 23:48 98.3 80 19 129/82 (98) 96 01/04/20 21:00 Room Air 01/04/20 20:00 98.4 83 19 136/83 (100) 95 01/04/20 16:00 97.7 83 20 111/64 (80) 96 01/04/20 12:00 97.9 96 20 113/72 (86) 97 01/04/20 09:00 Room Air Intake and Output 01/04/20 01/05/20 19:00 07:00 Intake Total 1220 ml 1100 ml Output Total 1300 ml 600 ml Balance -80 ml 500 ml Intake Oral 120 ml IV Total 1100 ml 1100 ml Output Urine Total 1300 ml 600 ml # Voids 1 1 # Bowel Movements 1 3 General Appearance: no acute distress HEENT: normocephalic Respiratory: chest wall non-tender, lungs clear Cardiovascular: normal peripheral pulses Abdomen: normal bowel sounds Current Medications Medications (Trade) Dose Ordered Sig/Val Route PRN Reason Start Time Stop Time Status Last Admin Dose Admin Acetaminophen (Tylenol) 650 mg Q6H PRN ORAL Temp >100.5 12/24/19 22:30 01/23/20 22:29 Albuterol/ Ipratropium (Combivent Respimat) 1 puff Q4HR INH 12/25/19 09:00 01/24/20 08:59 01/03/20 17:00 Artificial Tears (Akwa-Tears) 1 drop THREE TIMES A DAY BOTH EYES 12/25/19 09:00 01/24/20 08:59 01/03/20 18:00 Ondansetron HCl (Zofran) 4 mg Q6H PRN IVP Nausea & Vomiting 12/24/19 19:00 01/23/20 18:59 Patient Own Medication (Patient's Own Med) 1 ea DAILY@1700 ORAL 01/04/20 17:00 02/03/20 16:59 01/04/20 17:27 Sodium Chloride 1,000 ml @ 100 mls/hr Q10H IV 12/24/19 19:00 01/23/20 18:59 01/05/20 00:59 Tamsulosin HCl (Flomax) 0.4 mg DAILY ORAL 12/25/19 09:00 01/24/20 08:59 01/04/20 09:45 Assessment/Plan Assessment/Plan IMPRESSION: 1. Providencia UTI. 2. senior living resident. 3. Hypertension. 4. GERD. 5. COVID 19 pneumonia DISCUSSION: Currently, his status is stable. He is on RA I will follow carefully Continue fluids,breathing treatments, abx as well as p.r.n. medications. OK to dc Ranjan Adam Omar Syed MD January 05, 2020 08:51
[2020-01-05] MEDS: Tamsulosin 0.4mg cap ORAL SCH (09:46)
[2020-01-05 12:00] VITALS: BP 105/73
--- NOTE | 2020-01-05 14:20 | Infectious Diseases Prog Note ---
Assessment/Plan Assessment/Plan A; 1. Providencia urinary tract infection treated 2. COVID-19 pneumonia 3. Dementia. 4. Depression. 5. Lymphocytosis 6. elevated transaminase &. HIV PLAN: 1. Continue isolation. 2. Continue HAART Subjective ROS Limited/Unobtainable: Yes Constitutional: Denies: fever Allergies: Coded Allergies: No Known Allergies (Unverified , 12/24/19) Objective Vital Signs Last 24 Hour Vital Signs Date Time Temp Pulse Resp B/P (MAP) Pulse Ox O2 Delivery O2 Flow Rate FiO2 01/05/20 12:00 97.2 82 18 105/73 (84) 97 01/05/20 09:00 Room Air 01/05/20 08:00 97.0 94 18 102/59 (73) 96 01/05/20 04:00 98.0 82 19 104/66 (79) 95 01/04/20 23:48 98.3 80 19 129/82 (98) 96 01/04/20 21:00 Room Air 01/04/20 20:00 98.4 83 19 136/83 (100) 95 01/04/20 16:00 97.7 83 20 111/64 (80) 96 Height (Feet): 5 Height (Inches): 6.00 Weight (Pounds): 104 General Appearance: no acute distress HEENT: mucous membranes moist Respiratory/Chest: no respiratory distress Cardiovascular: normal rate Abdomen: soft, non tender Extremities: no edema Neurologic/Psychiatric: other - sleeping Current Medications Medications (Trade) Dose Ordered Sig/Val Route PRN Reason Start Time Stop Time Status Last Admin Dose Admin Acetaminophen (Tylenol) 650 mg Q6H PRN ORAL Temp >100.5 12/24/19 22:30 01/23/20 22:29 Albuterol/ Ipratropium (Combivent Respimat) 1 puff Q4HR INH 12/25/19 09:00 01/24/20 08:59 01/03/20 17:00 Artificial Tears (Akwa-Tears) 1 drop THREE TIMES A DAY BOTH EYES 12/25/19 09:00 01/24/20 08:59 01/03/20 18:00 Ondansetron HCl (Zofran) 4 mg Q6H PRN IVP Nausea & Vomiting 12/24/19 19:00 01/23/20 18:59 Patient Own Medication (Patient's Own Med) 1 ea DAILY@1700 ORAL 01/04/20 17:00 02/03/20 16:59 01/04/20 17:27 Sodium Chloride 1,000 ml @ 100 mls/hr Q10H IV 12/24/19 19:00 01/23/20 18:59 01/05/20 11:03 Tamsulosin HCl (Flomax) 0.4 mg DAILY ORAL 12/25/19 09:00 01/24/20 08:59 01/05/20 09:46 Baron Angulo MD January 05, 2020 14:20
[2020-01-05 16:00] VITALS: BP 118/78
--- NOTE | 2020-01-05 16:01 | NUR ---
NURSE NOTES: Primary nurse TOMY Viramontes and charge nurse TOMY Preston spoke with Jenifer charge nurse at [facility]. Jenifer states that facility cannot accept patient because that have not received the clearance from the [facility] Department. Will endorse to next shift for case management follow up.
[2020-01-05] MEDS: GENVOYA ORAL SCH (17:14)
--- NOTE | 2020-01-05 19:22 | NUR ---
HAND-OFF: Report given to TOMY Eller.
--- NOTE | 2020-01-05 19:59 | Progress Note ---
DATE: 01/05/2020 SUBJECTIVE: The patient is a 59-year-old male. The patient is physically doing okay. PHYSICAL EXAMINATION: VITAL SIGNS: Blood pressure 105/73, pulse 82, no fever. CHEST: Bilaterally clear. CARDIOVASCULAR: Regular rhythm. ABDOMEN: Soft. ASSESSMENT: 1. UTI. 2. COVID positive. 3. Pneumonia. PLAN: 1. The patient is physically doing better. 2. Continue antibiotic. 3. Discharge plan to SNF tomorrow. The patient is still going to go in isolation. Davey Quintana M.D. DR: Hawk JOB#: [id number] CC:
[2020-01-05 20:00] VITALS: BP 122/77
--- NOTE | 2020-01-05 20:00 | NUR ---
NURSE NOTES: Patient received in bed, asleep, no distress, IV infusing as ordered. Had BM, cleaned and repositioned for comfort. Will continue plan of care.
[2020-01-05 23:25] VITALS: BP 129/74
[2020-01-06 04:49] VITALS: BP 129/74
--- NOTE | 2020-01-06 05:30 | NUR ---
NURSE NOTES: Patient became agitated because of pain on his right upper arm, pointing at his IV site. Checked IV, good blood return, no redness or signs of infiltration, but patient still insisted to take it out. Patient agreed to re-site IV. IV access obtained on left forearm. Fluids resumed.
--- NOTE | 2020-01-06 07:10 | NUR ---
HAND-OFF: Report given to Neno HUITRON.
--- NOTE | 2020-01-06 07:15 | NUR ---
NURSE NOTES: Received patient in bed. Awake, A/O x4. On room air. IV in the Left forearm, site is intact, infusing IVF well. Patient denies pain at this time. F/c in place draining yellow urine. Bed low and locked, call light within reach.
[2020-01-06 08:00] VITALS: BP 127/80
[2020-01-06] MEDS: Tamsulosin 0.4mg cap ORAL SCH (08:11)
--- NOTE | 2020-01-06 09:06 | Pulmonology Progress Note ---
Subjective ROS Limited/Unobtainable: Yes Interval Events: None new Constitutional: Denies: fever HEENT: Repors: no symptoms Respiratory: Reports: dry cough, shortness of breath Cardiovascular: Reports: no symptoms Gastrointestinal/Abdominal: Denies: nausea, vomiting, diarrhea Genitourinary: Reports: no symptoms Musculoskeletal: Denies: pain Allergies: Coded Allergies: No Known Allergies (Unverified , 12/24/19) Objective Last 24 Hour Vital Signs Date Time Temp Pulse Resp B/P (MAP) Pulse Ox O2 Delivery O2 Flow Rate FiO2 01/06/20 04:49 98.5 85 18 129/74 (92) 97 01/05/20 23:25 98.5 85 18 129/74 (92) 97 01/05/20 21:00 Room Air 01/05/20 20:00 98.0 80 20 122/77 (92) 97 01/05/20 16:00 98.0 75 18 118/78 (91) 97 01/05/20 12:00 97.2 82 18 105/73 (84) 97 Intake and Output 01/05/20 01/06/20 19:00 07:00 Intake Total 1911 ml 1100 ml Output Total 1000 ml Balance 1911 ml 100 ml Intake Oral 711 ml IV Total 1200 ml 1100 ml Output Urine Total 1000 ml # Voids 1 General Appearance: no acute distress HEENT: normocephalic Respiratory: chest wall non-tender, lungs clear Cardiovascular: normal peripheral pulses Abdomen: normal bowel sounds Current Medications Medications (Trade) Dose Ordered Sig/Val Route PRN Reason Start Time Stop Time Status Last Admin Dose Admin Acetaminophen (Tylenol) 650 mg Q6H PRN ORAL Temp >100.5 12/24/19 22:30 01/23/20 22:29 Albuterol/ Ipratropium (Combivent Respimat) 1 puff Q4HR INH 12/25/19 09:00 01/24/20 08:59 01/03/20 17:00 Artificial Tears (Akwa-Tears) 1 drop THREE TIMES A DAY BOTH EYES 12/25/19 09:00 01/24/20 08:59 01/03/20 18:00 Ondansetron HCl (Zofran) 4 mg Q6H PRN IVP Nausea & Vomiting 12/24/19 19:00 01/23/20 18:59 Patient Own Medication (Patient's Own Med) 1 ea DAILY@1700 ORAL 01/04/20 17:00 02/03/20 16:59 01/05/20 17:14 Sodium Chloride 1,000 ml @ 100 mls/hr Q10H IV 12/24/19 19:00 01/23/20 18:59 01/06/20 06:34 Tamsulosin HCl (Flomax) 0.4 mg DAILY ORAL 12/25/19 09:00 01/24/20 08:59 01/06/20 08:11 Assessment/Plan Assessment/Plan IMPRESSION: 1. Providencia UTI. 2. detention resident. 3. Hypertension. 4. GERD. 5. COVID 19 pneumonia DISCUSSION: Currently, his status is stable. He is on RA I will follow carefully Continue fluids,breathing treatments, abx as well as p.r.n. medications. OK to dc Ranjan Adam Omar Syed MD January 06, 2020 09:06
--- NOTE | 2020-01-06 10:25 | NUR ---
DISCHARGE PLANNING CALL MADE TO [facility] [phone] S/W JIMBO. REPORTS PATIENT MAY RETURN TO SNF TODAY. HE IS CURRENTLY AWAITING AUTH FROM [facility] AT THIS TIME. JIMBO WILL CALL THIS CM WHEN HE IS ABLE TO PROVIDE BED ASSIGNMENT. CURRENT CLINICALS FAXED TO [phone].
--- NOTE | 2020-01-06 11:21 | Infectious Diseases Prog Note ---
Assessment/Plan Assessment/Plan antibiotics : none A 1. providencia UTI s/p rx 2. COVID 19 pneumonia patient refused hydroxychloroquine on room air, 98 percent O2 saturation 3. dementia 4. HIV P 1. observe off antibiotics 2. will follow up cultures 3. continue isolation Subjective ROS Limited/Unobtainable: Yes Allergies: Coded Allergies: No Known Allergies (Unverified , 12/24/19) Objective Vital Signs Last 24 Hour Vital Signs Date Time Temp Pulse Resp B/P (MAP) Pulse Ox O2 Delivery O2 Flow Rate FiO2 01/06/20 09:00 Room Air 01/06/20 08:00 98.0 77 20 127/80 (96) 98 01/06/20 04:49 98.5 85 18 129/74 (92) 97 01/05/20 23:25 98.5 85 18 129/74 (92) 97 01/05/20 21:00 Room Air 01/05/20 20:00 98.0 80 20 122/77 (92) 97 01/05/20 16:00 98.0 75 18 118/78 (91) 97 01/05/20 12:00 97.2 82 18 105/73 (84) 97 Height (Feet): 5 Height (Inches): 6.00 Weight (Pounds): 104 Current Medications Medications (Trade) Dose Ordered Sig/Val Route PRN Reason Start Time Stop Time Status Last Admin Dose Admin Acetaminophen (Tylenol) 650 mg Q6H PRN ORAL Temp >100.5 12/24/19 22:30 01/23/20 22:29 Albuterol/ Ipratropium (Combivent Respimat) 1 puff Q4HR INH 12/25/19 09:00 01/24/20 08:59 01/03/20 17:00 Artificial Tears (Akwa-Tears) 1 drop THREE TIMES A DAY BOTH EYES 12/25/19 09:00 01/24/20 08:59 01/03/20 18:00 Ondansetron HCl (Zofran) 4 mg Q6H PRN IVP Nausea & Vomiting 12/24/19 19:00 01/23/20 18:59 Patient Own Medication (Patient's Own Med) 1 ea DAILY@1700 ORAL 01/04/20 17:00 02/03/20 16:59 01/05/20 17:14 Sodium Chloride 1,000 ml @ 100 mls/hr Q10H IV 12/24/19 19:00 01/23/20 18:59 01/06/20 06:34 Tamsulosin HCl (Flomax) 0.4 mg DAILY ORAL 12/25/19 09:00 01/24/20 08:59 01/06/20 08:11 Aysha Beal MD January 06, 2020 11:21
[2020-01-06 12:00] VITALS: BP 98/66
--- NOTE | 2020-01-06 12:05 | NUR ---
*-*DISCHARGE PLANNING*-* PATIENT HAS BEEN REFERRED TO: [facility] P: [phone] S/W FLASH, STILL WAITING ON AUTHORIZATION FROM DEPARTMENT OF HEALTH
--- NOTE | 2020-01-06 12:47 | NUR ---
RD ASSESSMENT & RECOMMENDATIONS SEE CARE ACTIVITY FOR COMPLETE ASSESSMENT DAILY ESTIMATED NEEDS: Needs based on HIV 50kg 30-35 kcals/kg 9636-4336 total kcals 1-2 g protein/kg 50-100 g total protein 25-30 mL/kg 4105-1422 total fluid mLs NUTRITION DIAGNOSIS: Increased kcal and pro needs r/t underweight status as evidenced by BMI underweight per guidelines, 77% of Reynolds Body Weight, h/o HIV. CURRENT DIET: ms Chopped PO DIET RECOMMENDATIONS: Regular diet, texture as tolerated / per MAPPING ANALYST ADDITIONAL RECOMMENDATIONS: 1) Maintain calibrated bed scale wt d/t low BMI per EMR 2) MAPPING ANALYST eval for appropiate texture 3) Add ensure enlive TID + snacks as tolerated 4) Updated CBC and CMP as able
--- NOTE | 2020-01-06 14:31 | NUR ---
*-*DISCHARGE PLANNING*-* PATIENT HAS BEEN REFERRED TO: [facility] P: [phone] S/W LINDA, NOT ACCEPTING ANY ADMISSION [facility] P: [phone] S/W MARC , CALL BACK AFTER REVIEW [facility] P: [phone] S/W HADLEY, CANNOT ACCEPT THIS PATIENT [facility] P: [phone] S/W NARESH, NOT ACCEPTING PATIENTS AT THIS TIME [facility] P: [phone] S/W GEORGE, WILL CALL AFTER REVIEW [facility] [phone] S/W SAMIRA, CURRENTLY ON BED LOCK [facility] P: [phone] S/W SILAS, NOT ACCEPTING ANY PATIENTS [facility] P: [phone] S/W AMILCAR, NOT ACCEPTING [facility] P: [phone] S/W MARY, NOT ACCEPTING NEW PATIENTS [facility] P: [phone] S/W MOISES, NOT ACCEPTING ANT PATIENTS Addendum: 01/06/20 at 1515 by OZIEL VERDE CM *-*DISCHARGE PLANNING*-* PATIENT HAS BEEN REFERRED TO: [facility] P: [phone] S/W LINDA, NOT ACCEPTING ANY ADMISSION [facility] [place] P: [phone] S/W MARC , NEED APPROVAL, FOR INSURANCE [facility] P: [phone] S/W HADLEY, CANNOT ACCEPT THIS PATIENT [facility] P: [phone] S/W NARESH, NOT ACCEPTING PATIENTS AT THIS TIME [facility] P: [phone] S/W MARY JO, WILL CALL BACK AFTER REVIEW TRUMAN SORIA [phone] S/W SAMIRA, CURRENTLY ON BED LOCK [facility] P: [phone] S/W SIALS, NOT ACCEPTING ANY PATIENTS [facility] P: [phone] S/W AMILCAR, NOT ACCEPTING [facility] P: [phone] S/W MARY, NOT ACCEPTING NEW PATIENTS [facility] P: [phone] S/W MOISES, NOT ACCEPTING ANT PATIENTS Addendum: 01/06/20 at 1627 by OZIEL VERDE [facility] P: [phone] S/W MARY JO , UNABLE TO REVIEW PATIENTS REFERRALS.. THEY ARE BUSY WITH HEALTH DEPARTMENT Addendum: 01/06/20 at 1635 by OZIEL VERDE [facility] [place] P: [phone] S/W MARC , STATED SHE LEFT A VOICE MAIL WITH [employer] MACHINE OPERATOR FOR HEALTH INSURANCE, NEED APPROVAL
--- NOTE | 2020-01-06 15:44 | NUR ---
CASE MANAGEMENT:REVIEW 01/04/20 SI;COVID-19 POSITIVE. PROVIDENCIA UTI. 98.4 96 20 136/83 95% ON RA IS;IVF NS @ 100 ML/HR COMBIVENT INH Q4 HRS FLOMAX PO QD MED SURG STATUS DCP;FROM [facility] CASE MANAGEMENT:REVIEW 01/05/20 SI;COVID-19 POSITIVE. PROVIDENCIA UTI. 97.2 94 20 102/59 95% ON RA IS;IVF NS @ 100 ML/HR COMBIVENT INH Q4 HRS FLOMAX PO QD MED SURG STATUS DCP;[facility] CASE MANAGEMENT:REVIEW 01/06/20 SI;COVID-19 POSITIVE. PROVIDENCIA UTI. 98.5 93 19 98/66 IS;IVF NS @ 100 ML/HR COMBIVENT INH Q4 HRS FLOMAX PO QD MED SURG STATUS DCP;[facility]NA[facility] FOR RE-ADMISSION 10 REFERRALS BEING SENT DAILY ANUJA Cruz/[facility] AWARE OF PLACEMENT BARRIERS
[2020-01-06 15:50] VITALS: BP 131/70
--- NOTE | 2020-01-06 15:50 | NUR ---
*-* INSURANCE *-* UPDATED CLINICALS HAVE BEEN FAXED TO: [facility] NCM: SARINA RIVERA P- [phone] NCM: KRUPA MOJICA P:[phone] F- [phone]...REVIEW/CLINICAL
--- NOTE | 2020-01-06 16:43 | NUR ---
*-*DISCHARGE PLANNING*-* PATIENT HAS BEEN REFERRED TO: [facility] P: [phone] S/W SINDHU, NOT ACCEPTING, NOT COVERED WITH INSURANCE [facility] P: [phone] S/W BIANCA , WILL FOLLOW UP IN THE MORNING. [facility] P: [phone] S/W DEMETRIA, STILL UNDER REVIEW WITH [facility] P: [phone] S/W JAELYN , STILL REVIEWING CLINICALS, WILL CALL BACK
--- NOTE | 2020-01-06 17:05 | NUR ---
*-* DISCHARGE PLANNED *-* PATIENT HAS BEEN ACCEPTED BACK TO: [facility] ROOM# 131-A SKILLED T: [phone] FOR NURSE TO NURSE REPORT [facility] HAS BEEN ARRANGED FOR PACK TRAIN DRIVER AT 1830 S/W HAWK [id number]
[2020-01-06] MEDS: GENVOYA ORAL SCH (17:08)
--- NOTE | 2020-01-06 19:27 | NUR ---
HAND-OFF: Report given to Jose HUITRON.
--- NOTE | 2020-01-06 20:03 | NUR ---
NURSE NOTES: IV access removed. Belongings given to [facility] staff including own meds from pharmacy. To go to [facility] Rm [facility]-A. Paged for transport. Charge nurse made aware.
--- NOTE | 2020-01-06 20:59 | Progress Note ---
DATE: 01/06/2020 SUBJECTIVE: A 59-year-old old male came with nausea, vomiting, fever, chills, and cough. The patient was found to have COVID positive. He was doing fine, has been in the room, isolated, improving. PHYSICAL EXAMINATION: VITAL SIGNS: Blood pressure 131/70, pulse 91, no fever. CHEST: Bilaterally clear. CARDIOVASCULAR: Regular rhythm. ABDOMEN: Soft. EXTREMITIES: CCE. NEUROLOGICAL: No focal deficit. ASSESSMENT: 1. COVID pneumonia. 2. HIV. 3. Failure to thrive. PLAN: We will currently continue current treatment. DC plan per jail. Davey Quintana M.D. DR: Primitivo JOB#: [id number] CC:
--- NOTE | 2020-01-07 11:02 | Discharge Summary ---
Discharge Summary Discharge Summary _ DATE OF ADMISSION: 12/24/2019 DATE OF DISCHARGE: 01/06/2020 DISCHARGED BY: Dr. Quintana REASON FOR ADMISSION: 59 years old male, resident of jail facility, with past medical history of hypertension, HIV status, presented for evaluation due to fever for 1 day. Patient was found to be febrile with temperature 102. Pulse oximetry was stable on room air. Lactic acid 0.8. Urinalysis was suggestive of urinary tract infection. WBC 5.6, hemoglobin 12.2, hematocrit 36.7, platelet count 306. Stable electrolytes and renal parameters, glucose 95. AST 60, ALT 100. Chest x-ray demonstrated finings of possible pneumonia. In emergency department patient started on empiric antibiotics . Patient was swabbed for COVID-19 , and admitted for further management CONSULTANTS: pulmonary Dr. Mcallister ID specialist Dr. Beal HOSPITAL COURSE: Patient admitted to medical surgical floor. Patient initially was kept in isolation. Patient started on the IV fluids and empiric antibiotics. Blood cultures were negative. Urine culture revealed Providencia stuartii. SARS-CoV 2 by PCR on 12/23 detected. Isolation continued. Repeated SARS-COV 2 by PCR on 12/31 still detected. Patient completed treatment for UTI. Supplemental oxygen provided and titrated to keep oximetry above 92%. Pulmonary toilet provided. Aspiration precaution maintained. GI prophylaxis provided. SNF medication continued. HAART therapy continued. Patient clinically improved. Pulse oximetry was stable on room air prior to discharge. Patient clinically stabilized and was ready for discharge to jail facility for continuation of care. FINAL DIAGNOSES: Confirmed COVID-19 infection Pneumonia due to COVID-19 infection UTI with Providencia Hypertension GERD HIV status DISCHARGE MEDICATIONS: See Medication Reconciliation list. DISCHARGE INSTRUCTIONS: Patient was discharged to the jail facility. Follow up with medical doctor at the facility. I have been assigned to dictate discharge summary for this account. I was not involved in the patient's management. Lana Allen NP January 07, 2020 11:02
--- NOTE | 2020-01-07 11:33 | NUR ---
*-* INSURANCE *-* DISCHARGE SUMMARY HAS BEEN FAXED TO: [facility] NCM: SARINA RIVERA P- [phone] NCM: KRUPA MOJICA P:[phone] F- [phone]...REVIEW/CLINICAL
== END 2020-01-06 20:03 | DRG 177 ==
LOC: EDBD 12:58 → EMR 13:23 → 4E 14:10 → EDBEDREQ 16:15 → 4E 12-31 02:26
DX: U07.1 COVID-19 (principal); J12.89 Other viral pneumonia; N39.0 Urinary tract infection, site not specified; B96.89 Other specified bacterial agents as the cause of diseases classified elsewhere; I10 Essential (primary) hypertension; K21.9 Gastro-esophageal reflux disease without esophagitis; F03.90 Unspecified dementia, unspecified severity, without behavioral disturbance, psychotic disturbance, mood disturbance, and anxiety; F32.9 Major depressive disorder, single episode, unspecified; R62.7 Adult failure to thrive
CPT/HCPCS: 36415; 71045; 80053; 81003; 83605; 85007; 85025; 87040; 87081; 87086; 87181; 87635; 93005; 96365; 96368; 99285; J7030